=== PATIENT | male | born 1940 | race Two or more races ===

== ENCOUNTER → 2024-01-14 | Outpatient (CLI) | payer OTHER, SELFPAY ==
[2024-01-14 12:31] LABS: Basophils # (Auto) 0.1 Thou/mm3 (0.0-0.2); Basophils % (Auto) 1 % (0-2.5); Eosinophils # (Auto) 0.3 Thou/mm3 (0.0-0.5); Eosinophils % (Auto) 3 % (0-10); Hematocrit 35.3 % (41.0-53.0); Hemoglobin 12.2 g/dL (13.5-16.0); Immature Granulocytes % (Auto) 0 % (0-0); Immature Granulocytes Auto 0.04 Thou/mm3 (0.00-0.00); Lymphocytes # (Auto) 2.4 Thou/mm3 (1.0-4.8); Lymphocytes % (Auto) 24 % (10-50); Mean Corpuscular HGB Conc 34.6 g/dl (31.0-37.0); Mean Corpuscular Volume 93 fL (80-100); Monocytes # (Auto) 0.8 Thou/mm3 (0.0-0.8); Monocytes % (Auto) 8 % (0-12); Neutrophils # (Auto) 6.2 Thou/mm3 (1.8-7.7); Neutrophils % (Auto) 63 % (37-80); Nucleated Red Blood Cell % 0 /100 WBC (0); Platelet Count 229 Thou/mm3 (140-440); RDW Standard Deviation 48.5 fL (35.1-43.9); Red Blood Count 3.81 Miln/mm3 (4.50-5.90); White Blood Count 9.8 Thou/mm3 (3.8-10.6)
[2024-01-14 12:41] LABS: Glucose Estimated Average 111 mg/dL (80-131); Hemoglobin A1C 5.5 % Hgb (4.8-6.0)
[2024-01-14 12:47] LABS: Collection Type, Urine Clean Catch
[2024-01-14 12:52] LABS: Alanine Aminotransferase 33 U/L (10-49); Albumin, Serum 4.4 gm/dL (3.4-4.8); Alkaline Phosphatase 68 U/L (46-116); Anion Gap 9 (7-16); Aspartate Amino Transferase 33 U/L (0-34); BUN/Creatinine Ratio 19 Ratio (12-20); Bilirubin,Total 0.8 mg/dL (0.3-1.2); Blood Urea Nitrogen 19 mg/dL (9-23); Calcium 9.6 mg/dL (8.3-10.6); Calcium (Corrected) 9.6 mg/dL (8.5-10.1); Carbon Dioxide 24.3 mMol/L (20.0-31.0); Cardiac Risk Estimate 1.8 RATIO (4.0-6.7); Chloride 106 mMol/L (98-107); Cholesterol 115 mg/dL (132-200); Globulin 2.2 gm/dL (2.3-3.5); Glucose 148 mg/dL (74-106); HDL Cholesterol 65 mg/dL (40-60); LDL Cholesterol,Calculated 40 mg/dL (0-130); Osmolality,Calculated 282 (275-295); Potassium 3.7 mMol/L (3.4-5.1); Sodium 139 mMol/L (136-145); Total Protein 6.6 gm/dL (5.7-8.2); Triglycerides 52 mg/dL (30-150); eGFR > 60 See Note
[2024-01-14 13:34] LABS: Bilirubin,Urine Negative (Negative); Blood,Urine Negative (Negative); Clarity,Urine Clear (Clear/Hazy); Color,Urine Lt-Yellow (Lt Yel-Yel); Glucose, Urine Negative (Negative); Hyaline Casts,Urine < 1 /hpf (0-1); Ketones,Urine Negative (Negative); Leukocyte Esterase,Urine Negative (Negative); Nitrite,Urine Negative (Negative); Protein,Urine Negative (Neg - Trace); RBC,Urine 11 /hpf (0-3); Specific Gravity,Urine 1.015 (1.001-1.035); Squamous Epithelial Cell,Urine < 1 /hpf (0-5); Urobilinogen,Urine Negative mg/dL (0.0-1.0); WBC,Urine 3 /hpf (0-5)
[2024-01-14 13:46] LABS: Creatinine MALB Rnd Ur 77 mg/dL (30-125); Microalbumin Creat Ratio 17 mg/gCrea (<30); Microalbumin, Random Urine 13 mg/L (0-300)
== END | disposition home or self-care (01) ==
LOC: COPL 11:56
PROVIDERS: PCP Family Medicine; Referring Provider Family Medicine; Visit Provider Family Medicine
DX: E11.65 Type 2 diabetes mellitus with hyperglycemia (principal); I48.91 Unspecified atrial fibrillation
CPT/HCPCS: 36415; 80053; 80061; 81001; 82043; 82570; 83036; 85025

== ENCOUNTER → 2024-03-07 | Outpatient (CLI) | payer OTHER, SELFPAY ==
--- NOTE | 2024-03-07 13:55 | XR_ITS ---
Examination: Bone densitometry Date and time of exam:March 07, 2024 1358 hours INDICATIONS: 84-year-old male with diagnosis age related osteoporosis, calcium and vitamin D 5 years Technique: Lumbar spine and hip total bone mineralization values of an calculated. Peak reference and age match control results have been displayed. Findings: Lumbar spine total bone mineralization is1.432 gm/cm2. This is 3.1 standard deviations above peak reference. Hip total bone mineralization is 1.186 gm/cm2 This is 1.0 standard deviations above peak reference. Impression: There is normal mineralization based on lumbar spine measurements. There is normal mineralization based on hip measurements Lumbar mineralization is increased 3.9% compared with May 14, 2021 Hip mineralization is increased 2.5% compared with May 14, 2021
== END | disposition home or self-care (01) ==
LOC: CDIM 13:39
PROVIDERS: Referring Provider Family Medicine; Visit Provider Family Medicine
DX: M85.88 Other specified disorders of bone density and structure, other site (principal)
CPT/HCPCS: 77080

== ENCOUNTER 2024-05-04 23:35 | Inpatient (IN) | payer OTHER, MEDICARE, SELFPAY ==
[2024-05-04 23:38] VITALS: BP 150/68; PULSE 51; RESP 17; TEMP 36.8; O2SAT 100; BMI 31.1
[2024-05-04 23:40] VITALS: PULSE 64; RESP 18; O2SAT 98; BMI 30.8
[2024-05-05] VITALS (13 sets, daily range): BP systolic 131–227; BP diastolic 47–83; PULSE 51–68; RESP 12–19; TEMP 36.1–36.6; O2SAT 97–100
--- NOTE | 2024-05-05 | EKG_ITS ---
[facility] Test Date: 2024-05-05 Pat Name: REINALDO HURT Department: Room: - Gender: Male Concession Attendant: : 1940 Requested By: Divine Blunt Order Number: [id number] Reading MD: Divine Blunt Measurements Intervals [place] Rate: 45 P: TN: QRS: 70 QRSD: 87 T: 56 QT: 467 QTc: 406 Interpretive Statements ATRIAL FIBRILLATION WITH SLOW VENTRICULAR RESPONSE WITH ABERRANT CONDUCTION OR VENTRICULAR PREMATURE COMPLEXES ABNORMAL RHYTHM ECG Compared to ECG 09/04/2023 15:29:04 Ventricular premature complex(es) now present Aberrant conduction of supraventricular beat(s) now present ST (T wave) deviation no longer present /store/S0/[id number]/ecg/[id number].pdf
--- NOTE | 2024-05-05 00:04 | PC.NURSE ---
BIBA for fall and Syncope episode x 2. pt was taking out the trash when the trash can fell off the sidewalk. trash can injured RT 3rd/4th Digit with laceration. Pt denies LOC during the fall or hitting his head, pt states he is on thinners, for a TIA last year. has plate for a CSF hemorrhage in 198. pt states he doesn't pass out or fall often
--- NOTE | 2024-05-05 00:09 | PC.NURSE ---
documenting nurse placed pt on the monitors and into a gown.
--- NOTE | 2024-05-05 00:44 | PD.EDFALL ---
ED Fall Injury RME/HPI General Chief Complaint: Fall Stated Complaint: FALL Time Seen by Provider: 05/05/24 00:35 Arrival date/time: 05/04/24 23:35 Limitations: no limitations RME / HPI RME / HPI Narrative: Dr. Ponce's Main ED Evaluation: 84yo male with a history of HTN, COPD, BPH BIBA from home presents to the ED for a fall. Patient states he was moving the garbage can when he lost his balance and fell. Patient denies hitting his head, but reports the patient lost consciousness a few minutes later after he took his [place] and was sitting at the table. Patient notes having pain to his fingers where 2 of his nails came off. He denies any headache, neck pain, chest pain, abdominal pain, extremity pain or any other associated symptoms. Patient is on Eliquis. EMS reports that the patient also had a syncopal episode while on the stretcher. Patient reports that he is up today. She Related Data Home Medications ?Medication ?Instructions ?Recorded ?Confirmed doxazosin 4 mg tablet (Cardura) 4 mg PO BID 06/22/20 09/04/23 fluticasone fur. 200 mcg-umeclid 1 inh inhalation QDAY 09/04/23 09/04/23 62.5 mcg-vilant 25 mcg inhalat.powder (Trelegy Ellipta) triamterene 37.5 1 tab PO QAM 09/04/23 09/04/23 mg-hydrochlorothiazide 25 mg tablet metoprolol succinate 50 mg 50 mg PO 4XD 09/05/23 09/05/23 tablet,extended release 24 hr apixaban 5 mg tablet (Eliquis) mg 05/05/24 aspirin 81 mg tablet,delayed mg 05/05/24 release atorvastatin 40 mg tablet mg 05/05/24 folic acid 1 mg tablet 05/05/24 gabapentin 100 mg capsule mg 05/05/24 hydralazine 50 mg tablet mg 05/05/24 hydrocodone 5 mg-acetaminophen 325 tab 05/05/24 mg tablet ibuprofen 600 mg tablet mg 05/05/24 prednisone 10 mg tablet mg 05/05/24 Allergies Allergy/AdvReac Type Severity Reaction Status Date / Time codeine Allergy Intermediate Fainting Verified 06/22/20 10:59 Review of Systems Review of Systems Systems Reviewed: All systems reviewed, normal except as documented Past Medical History Past Medical History NEUROLOGIC: Positive Head Trauma (1986 CSF LEAK); Negative Neurological Disorders or Seizures CARDIAC: Positive Cardiac Disorders and Hypertension; Negative Congestive Heart Failure RESPIRATORY: Positive Chronic Obstructive Pulmonary Disease (COPD) (home o2 at night) GASTROINTESTINAL: Negative Gastrointestinal Disorders GENITOURINARY: Positive Genitourinary Disorders and Benign Prostatic Hyperplasia (turp); Negative Renal Disease MUSCULOSKELETAL: Positive Musculoskeletal Disorders ENT: Positive Cataracts (BILAT) and Head Trauma (1986 CSF LEAK) ENDOCRINE: Negative Endocrine Disorders, Diabetes Mellitus Type 1 or Diabetes Mellitus Type 2 HEMATOLOGIC: Negative Blood Disorders OTHER HISTORY: Negative Autoimmune Disease, Blood Transfusions, Anesthesia Reactions or Cancer Surgical History SURGICAL: Positive Neurologic Surgery (1986,plate) Social History SMOKING STATUS: Former smoker ED Exam Narrative Physical exam: Patient's sitting in the bed, minimal distress talking in full sentences. General Limitations: Present no limitations General appearance: Present alert and in no apparent distress Head Head exam: Present atraumatic and other (No raccoons eyes. No facial swelling.) Eye Eye exam: Present normal appearance, EOMI and other ENT ENT exam: Present normal exam, normal oropharynx, mucous membranes moist and TM's normal bilaterally Neck Neck exam: Present normal inspection, full ROM and trachea midline Chest Chest inspection: Present normal inspection, symmetric chest wall rise and other (No ecchymosis); Absent tenderness Respiratory Respiratory exam: Present normal lung sounds bilaterally Cardiovascular Cardiovascular exam: Present regular rate, normal rhythm and normal heart sounds Abdominal Exam Abdominal exam: Present soft, normal bowel sounds and other Extremities Exam Extremities exam: Present full ROM and other (No forearm, wrist, elbow, ecchymosis, full range of motion. Right index fingernail is gone with the tip of the finger amputated, minimal bleeding, Right distal digit is macerated without any bony exposure.) Back Exam Back exam: Present normal inspection and full ROM Neurological Exam Neurological exam: Present alert, oriented X3, CN II-XII intact and other (Equal sensation and motor to bilateral digits bilaterally-Motor, ulnar, radial nerve.) Psychiatric Psychiatric exam: Present normal affect and normal mood Skin Skin exam: Present warm, dry, intact, normal color and other (Normal cap refill); Absent rash or pallor Course Course Course Narrative: Elective blocks, irrigated 1 L of fluid. Quality Measures none Orders Category Date Time Status EKG (ED ONLY) *Do not use* NOW Care 05/05/24 00:[address] cervical spine wo con Stat Exams 05/05/24 00:[address] head/brain wo con Stat Exams 05/05/24 00:46 Taken EKG (ED Only) Stat Exams 05/05/24 00:00 Draft XR hand comp RT min 3V Stat Exams 05/05/24 00:51 Taken BNP [B-Type Natriuretic Peptide] Stat Lab 05/05/24 00:05 Completed CBC Stat Lab 05/05/24 00:05 Completed CMP [Comprehensive Metabolic Panel] Stat Lab 05/05/24 00:05 Completed PT [Prothrombin Time with INR] Stat Lab 05/05/24 00:05 Completed Troponin I Stat Lab 05/05/24 00:05 Completed Urinalysis Stat Lab 05/05/24 00:55 Ordered cephALEXin [Keflex] Med 05/05/24 05:04 Discontinued 500 mg PO X1 ONE hydrALAZINE INJ [Apresoline Inj] Med 05/05/24 04:33 Discontinued 20 mg IV X1 ONE Vital Signs Vital signs: Vital Signs Temperature 98.2 F 05/04/24 23:38 Pulse Rate 51 L 05/04/24 23:38 Respiratory Rate 17 05/04/24 23:38 Blood Pressure 150/68 H 05/04/24 23:38 Pulse Oximetry (%) 100 05/04/24 23:38 Oxygen Delivery Method Nasal Cannula 05/04/24 23:38 Oxygen Flow Rate 4 05/04/24 23:38 Fall MDM Narrative MDM Narrative:: Differential diagnosis includes syncope, loss of consciousness secondary to overmedication, arrhythmia, mechanical fall, vasovagal syncope, UTI, electrolyte abnormality, occult infection. 84-year-old male with multiple medical problems on Eliquis presenting to the emergency department after mechanical fall while taking out the garbage. Patient is only complaining of pain to the right middle and index nail bed area. 2 additional episodes of syncope witnessed 1 by the and 1 by EMS that was less than 30 seconds. No seizure-like activity is noted. Extremities neurovascularly intact. I attempted to contact a hand surgeon at [facility], but they were unavailable for consultation. Patient's right index finger had a fingerblock placed with 3cc lidocaine 1% in order to allow me to irrigate the wound better. There was nothing suturable on the wound. A small vaseline gauze was placed on the nailbed and surgicel was placed below the nailbed area. I made it aware to the medicine team that I recommend treating with Keflex 500 mg twice daily for 3 to 5 days. When they change dressing we placed the Vaseline gauze that is covering the nailbed only and not removing the surgicel, will absorb over time and follow-up by itself. Please keep the hand elevated to avoid swelling for the next 24 hours. Please keep area dry without putting in water. Patient data External records reviewed:: [facility] previous records (Per chart review, patient was admitted here on 09/04/23 for CVA.) Clinical information provided by:: patient Social determinants that could affect healthcare access:: none Patient has the following chronic illnesses:: HTN, COPD, BPH How is presenting disease/condition affected by chronic disease/condition?: uneffected by Evaluation data The following diagnostics were reviewed and interpreted by me:: lab results, radiology exam(s) and EKG tracing(s) Lab and/or radiology exams considered but not ordered:: none Interpretation Summary: Right hand x-ray shows no obvious fractures or dislocations, but some soft tissue swelling, according to my interpretation. EKG done at 0004, aFib, rate of 47, nonspecific changes in avL, according to my interpretation, ------ [facility] Preliminary Report Draft Patient: REINALDO HURT. Record#: [id number] Birthdate: 1940 Age/Sex: 84 / M Location: [facility] Attending Dr: Ordering Physician: Date of Service: Procedure(s): Accession Number(s): cc: ~ CT scan of the head without intravenous contrast (axial sections with sagittal and coronal reformats) May 05, 2024 0123 hours Clinical history: 84 yo with possible syncope No prior study is available for comparison. Findings: There is no evidence of intracranial hemorrhage, mass effect or midline shift. Right frontal lobe encephalomalacia is noted. There is left frontal craniotomy with underlying dural thickening. There are mild periventricular white matter hypodensities, likely representing chronic small vessel ischemia. There is moderate volume loss. Marked sphenoid sinus opacification with postoperative changes. The mastoid air cells and the other visualized paranasal sinuses are clear. Impression: No evidence of intracranial hemorrhage, mass effect or midline shift. Periventricular chronic small vessel ischemia and volume loss. Other findings as described above. Report Electronically Signed By: Rajiv Sawant 05/05/2024 2:13:47 AM [EST] [facility] Preliminary Report Draft Patient: REINALDO HURT. Record#: [id number] Birthdate: 1940 Age/Sex: 84 / M Location: [facility] Attending Dr: Ordering Physician: Date of Service: Procedure(s): Accession Number(s): cc: ~ CT scan of the cervical spine without intravenous contrast (axial sections with sagittal and coronal reformats) May 05, 2024 0123 hours Clinical History: 84 yo possible Syncope No prior study is available for comparison. Findings: There is no fracture or subluxation. Moderate degenerative changes are noted in the form of multilevel marginal osteophytes, decreased disc spaces. C3-C4 through C6-C7 disc osteophyte complexes are noted with associated uncinate hypertrophy and facet arthropathy causing multilevel mild to moderate bilateral neural foraminal narrowing. The prevertebral soft tissues are unremarkable. Moderate opacification of left mastoid air cells. Impression: No evidence of fracture or subluxation. Moderate degenerative changes. Report Electronically Signed By: Rajiv Sawant 05/05/2024 2:18:21 AM [EST Medications / Prescriptions Medications or Prescriptions considered but not ordered:: none Medication administrations:: Medication Administration History Discontinued Medications Cephalexin HCl (Cephalexin 250 Mg Capsule) 500 mg PO X1 ONE Stop: 05/05/24 05:05 Hydralazine HCl (Hydralazine Inj 20 Mg/Ml Vial) 20 mg IV X1 ONE Stop: 05/05/24 04:34 Last Admin: 05/05/24 05:07 Dose: 20 mg Documented By: MERRILL Comments: Hospitalist in now see above Consultations Consultation(s) initiated? (list below): Yes Consultation #1 (Physician, Specialty, Details): Discussed case with from Hospitalist service regarding admission. Discussed patients ED course, exam findings, labs, and radiology results. The Hospitalist [agrees] to accept the patient for admission. Diagnosis Fall Differential Diagnosis: other (See MDM narrative.) Most likely diagnosis given after review of the tests above:: see below Admission Indicated Admission indicated?: indicated Admission Request Was there a request for admission?: Yes Admission Attestation Admission request attestation: Discussed case with [] from Hospitalist service regarding admission. Discussed patients ED course, exam findings, labs, and radiology results. The Hospitalist [agrees,declines] to accept the patient for admission. Disposition Plan Disposition Plan: Admit Critical Care Time Critical Care Time Critical Care Time: Yes Total Critical Care Time (min.): 40 Attestation: The high probability of sudden, clinically significant deterioration in the patient?s condition required the highest level of my preparedness to intervene urgently. The services I provided to this patient were to treat and/or prevent clinically significant deterioration. Services included the following: chart data review, reviewing nursing notes and/or old charts, documentation time, human resources consultant collaboration regarding findings and treatment options, medication orders and management, direct patient care, vital sign assessments and ordering, interpreting and reviewing diagnostic studies and lab tests. Aggregate critical care time includes only time during which I was engaged in work directly related to the patient?s care, as described above, whether at bedside or elsewhere in the Emergency Department. It did not include time spent performing other reported procedures or the services of residents, students, nurses or physician assistants. Discharge Plan Plan Patient Disposition: Admit Acute Care w/in Hospital Patient condition on transfer: Stable Prescriptions/Referrals Prescriptions/Med Rec: No Action doxazosin [Cardura] 4 mg Tablet 4 mg PO BID triamterene-hydrochlorothiazid 37.5-25 mg Tablet 1 tab PO QAM Trelegy Ellipta 200-62.5-25 mcg Blister With Device 1 inh INHALATION QDAY metoprolol succinate 50 mg tablet extended release 24 hr 50 mg PO 4XD atorvastatin 40 mg tablet Patient Comments: TAKE 1 TABLET BY MOUTH EVERY DAY FOR 90 DAYS prednisone 10 mg tablet Patient Comments: TAKE 1 TABLET BY MOUTH EVERY DAY FOR 30 DAYS hydrocodone-acetaminophen 5-325 mg tablet Patient Comments: TAKE 1 TABLET BY MOUTH TWICE A DAY aspirin 81 mg tablet,delayed release (DR/EC) Patient Comments: TAKE 1 TABLET BY MOUTH EVERY DAY FOR 90 DAYS folic acid 1 mg tablet Patient Comments: TAKE 1 TABLET BY MOUTH EVERY DAY FOR 90 DAYS hydralazine 50 mg tablet Patient Comments: TAKE 1 TABLET BY MOUTH TWICE A DAY WITH FOOD FOR 90 DAYS gabapentin 100 mg capsule Patient Comments: TAKE 3 CAPSULES BY MOUTH 3 TIMES A DAY ibuprofen 600 mg tablet Patient Comments: TAKE 1 TABLET BY MOUTH THREE TIMES A DAY WITH FOOD OR MILK NEEDED FOR 90 DAYS Eliquis 5 mg tablet Patient Comments: TAKE 1 TABLET BY MOUTH TWICE A DAY FOR 90 DAYS Referrals: Benjamin Ramirez MD [Primary Care Provider] - In 1 week Problem List Clinical Impression: Syncope Patient/Caregiver Discharge Instructions Print Language: Faroese Stand Alone Forms: Angelia Award Info., Patient Portal Info Letter
--- NOTE | 2024-05-05 00:46 | XR_ITS ---
Examination: CT brain head without contrast. 2-D sagittal coronal reconstructions Date and time of exam:May 05, 2024 0123 hrs. Indications: Patient fell today with injury to the head, head pain CTDI: vol (mGy):55.9 DLP: (mGycm):1231 Technique: Multiple CT axial sections of the brain have been obtained, 5 mm slice thickness. Contrast has not been administered. 2-D sagittal, coronal reconstructions have been obtained Low dose protocols were performed. One or more of the following dose reduction techniques were used; automated exposure control, adjustment of the mA and/or KV according to patient size, use of iterative reconstruction technique. Findings: No significant ventricular enlargement. Intra-axial or extra-axial hemorrhage density is not seen. No mass effect or midline shift Basal cisterns are not remarkable. Fourth ventricle is midline. Left frontal craniotomy defects and postoperative changes in the sinuses Impression: Negative for acute hemorrhage, mass effect or midline shift
--- NOTE | 2024-05-05 00:50 | XR_ITS ---
Examination: CT cervical spine without contrast 2-D sagittal reconstructions 2-D coronal reconstructions 3-D reconstructions. Exam date and time:May 05, 2024 0123 hrs. Indications: Patient fell today with injury to the neck, neck pain CTDI:vol (mGy) 8.51 DLP: (mGycm) 161 Technique: Multiple 2 mm axial sections of the cervical spine have been obtained. The coronal and sagittal reconstructions have been obtained. 3-D reconstructions have been obtained. Low dose protocols were performed. One or more of the following dose reduction techniques were used; automated exposure control, adjustment of the mA and/or KV according to patient size, use of iterative reconstruction technique. Findings: Axial sections demonstrate intact base of the skull. C1 exhibit satisfactory relationship to the odontoid. No acute cervical vertebral body fracture seen. Alignment posterior spinous processes satisfactory. Impression: No acute cervical fracture.
--- NOTE | 2024-05-05 00:51 | XR_ITS ---
Examination: Hand, right 3 views Technique: Hand AP, oblique, lateral 3 views Date and time of exam: May 05, 2024 at 0105 hrs. Indications: Patient fell today with laceration to the hand Findings: Poor definition of the ungual tuft tip distal phalanx third digit Significant narrowing second and third metacarpophalangeal joints Impression: No opaque foreign body Possible fracture ungual tuft tip distal phalanx third digit Consider follow-up coned views third and fourth digits as clinically warranted
[2024-05-05 01:08] LABS: Basophils # (Auto) 0.1 Thou/mm3 (0.0-0.2); Basophils % (Auto) 1 % (0-2.5); Eosinophils # (Auto) 0.3 Thou/mm3 (0.0-0.5); Eosinophils % (Auto) 3 % (0-10); Hematocrit 34.3 % (41.0-53.0); Hemoglobin 11.7 g/dL (13.5-16.0); Immature Granulocytes % (Auto) 1 % (0-0); Immature Granulocytes Auto 0.06 Thou/mm3 (0.00-0.00); Lymphocytes # (Auto) 2.6 Thou/mm3 (1.0-4.8); Lymphocytes % (Auto) 22 % (10-50); Mean Corpuscular HGB Conc 34.1 g/dl (31.0-37.0); Mean Corpuscular Hemoglobin 31.1 pg (25.0-35.0); Mean Corpuscular Volume 91 fL (80-100); Monocytes # (Auto) 1.3 Thou/mm3 (0.0-0.8); Monocytes % (Auto) 11 % (0-12); Neutrophils # (Auto) 7.7 Thou/mm3 (1.8-7.7); Neutrophils % (Auto) 64 % (37-80); Nucleated Red Blood Cell % 0 /100 WBC (0); Platelet Count 245 Thou/mm3 (140-440); RDW Standard Deviation 45.5 fL (35.1-43.9); Red Blood Count 3.76 Miln/mm3 (4.50-5.90)
[2024-05-05 01:31] LABS: Alanine Aminotransferase 39 U/L (10-49); Albumin, Serum 4.1 gm/dL (3.4-4.8); Albumin/Globulin Ratio 1.4 (1.2-2.2); Alkaline Phosphatase 74 U/L (46-116); Anion Gap 9 (7-16); Aspartate Amino Transferase 34 U/L (0-34); BUN/Creatinine Ratio 28 Ratio (12-20); Bilirubin,Total 0.4 mg/dL (0.3-1.2); Blood Urea Nitrogen 53 mg/dL (9-23); Calcium 9.8 mg/dL (8.3-10.6); Calcium (Corrected) 9.8 mg/dL (8.5-10.1); Carbon Dioxide 30.9 mMol/L (20.0-31.0); Chloride 102 mMol/L (98-107); Creatinine (Component) 1.9 mg/dL (0.6-1.3); Estimated Creatinine Clearance 30.3 mL/min (>60); Globulin 2.9 gm/dL (2.3-3.5); Glucose 115 mg/dL (74-106); INR 1.1 (0.9-1.3); Osmolality,Calculated 298 (275-295); Prothrombin Time 11.9 Seconds (9.0-12.2); Sodium 142 mMol/L (136-145); Troponin I < 0.020 ng/mL (0.0-0.045); eGFR 34 See Note
[2024-05-05 01:58] LABS: B-Type Natriuretic Peptide 289 pg/mL (0-100)
--- NOTE | 2024-05-05 02:14 | PRELIM_ITS ---
CT scan of the head without intravenous contrast (axial sections with sagittal and coronal reformats) May 05, 2024 0123 hours Clinical history: 84 yo with possible syncope No prior study is available for comparison. Findings: There is no evidence of intracranial hemorrhage, mass effect or midline shift. Right frontal lobe encephalomalacia is noted. There is left frontal craniotomy with underlying dural thickening. There are mild periventricular white matter hypodensities, likely representing chronic small vessel ischemia. There is moderate volume loss. Marked sphenoid sinus opacification with postoperative changes. The mastoid air cells and the other visualized paranasal sinuses are clear. Impression: No evidence of intracranial hemorrhage, mass effect or midline shift. Periventricular chronic small vessel ischemia and volume loss. Other findings as described above. Report Electronically Signed By: Rajiv Sawant 05/05/2024 2:13:47 AM [EST]
--- NOTE | 2024-05-05 02:19 | PRELIM_ITS ---
CT scan of the cervical spine without intravenous contrast (axial sections with sagittal and coronal reformats) May 05, 2024 0123 hours Clinical History: 84 yo possible Syncope No prior study is available for comparison. Findings: There is no fracture or subluxation. Moderate degenerative changes are noted in the form of multilevel marginal osteophytes, decreased disc spaces. C3-C4 through C6-C7 disc osteophyte complexes are noted with associated uncinate hypertrophy and facet arthropathy causing multilevel mild to moderate bilateral neural foraminal narrowing. The prevertebral soft tissues are unremarkable. Moderate opacification of left mastoid air cells. Impression: No evidence of fracture or subluxation. Moderate degenerative changes. Report Electronically Signed By: Rajiv Sawant 05/05/2024 2:18:21 AM [EST]
[2024-05-05] MEDS: hydrALAZINE INJ 20 MG/ML VIAL IV (05:07)
--- NOTE | 2024-05-05 05:25 | PC.NURSE ---
[id number] CONTACTED HOSEA SULLIVAN, SENT PT PKT. DR MERCADO SPEAKING WITH TRANSFER NURSE. 1423 PT DECLINED NO HAND SPECIALIST AVAILABLE.
--- NOTE | 2024-05-05 05:29 | XR_ITS ---
Examination: AP chest single view Technique one AP portable upright chest single view Exam date and time: May 05, 2024 0543 hrs. Indication: Syncopal episode today. Findings: Mild prominence cardiac contour No aspiration pneumonia Minor subsegmental atelectasis left base Moderate osteopenia Impression: No aspiration pneumonia
--- NOTE | 2024-05-05 05:29 | ECHO_ITS ---
Transthoracic Echo Report Ht (in): 67 Wt (lb): 196 Exam Location: Echo Lab Status: Inpatient Plasterer Maintenance: TACHO Brooks^^^^ Indications: Procedure Performed: BP: 132 / 72 HR: 88 Technical Quality: Fair MEASUREMENTS (Male / Female) Normal Values 2D ECHO LV Diastolic Diameter PLAX 5.1 cm 4.2 - 5.9 / 3.9 - 5.3 cm LV Systolic Diameter PLAX 3.4 cm IVS Diastolic Thickness 1.1 cm 0.6 - 1.0 / 0.6 - 0.9 cm LVPW Diastolic Thickness 1.0 cm 0.6 - 1.0 / 0.6 - 0.9 cm LV Relative Wall Thickness 0.4 LVOT Diameter 1.7 cm Aortic Root Diameter 3.5 cm LA Systolic Diameter LX 3.7 cm 3.0 - 4.0 / 2.7 - 3.8 cm LV Ejection Fraction MOD 4C 62.5 % LV Cardiac Index MOD 4C 3097.2 cm?/min?m? LV Ejection Fraction 4C AL 63.6 % LV Cardiac Index 4C AL 3266.7 cm?/min?m? LA Volume Index 43.7 cm?/m? 16 - 28 cm?/m? Ascending Aorta Diameter 3.5 cm DOPPLER AV Peak Velocity 158.5 cm/s AV Peak Gradient 10.0 mmHg AV Mean Gradient 7.0 mmHg AV Velocity Time Integral 37.2 cm AI Peak Velocity 217.5 cm/s AI Peak Gradient 18.9 mmHg AI Pressure Half Time 861.0 ms LVOT Peak Velocity 91.7 cm/s LVOT Peak Gradient 3.4 mmHg LVOT Velocity Time Integral 22.6 cm LVOT Cardiac Index 2173.4 cm?/min?m? AV Area Cont Eq vti 1.4 cm? AV Area Cont Eq pk 1.3 cm? MV Peak Velocity 138.0 cm/s MV Peak Gradient 7.6 mmHg MV Mean Velocity 69.0 cm/s MV Mean Gradient 2.0 mmHg MV Area PHT 3.9 cm? MR Peak Velocity 551.0 cm/s MR Peak Gradient 121.4 mmHg Mitral E Point Velocity 160.0 cm/s Mitral A Point Velocity 62.4 cm/s Mitral E to A Ratio 2.6 LV E' Lateral Velocity 13.0 cm/s Mitral E to LV E' Lateral Ratio 12.3 LV E' Septal Velocity 8.4 cm/s Mitral E to LV E' Septal Ratio 19.0 TR Peak Velocity 301.7 cm/s TR Peak Gradient 36.4 mmHg PV Peak Velocity 86.1 cm/s PV Peak Gradient 3.0 mmHg RVOT Peak Velocity 48.0 cm/s FINDINGS Left Ventricle Normal left ventricular size, wall thickness, systolic function with no obvious regional wall motion abnormalities. The left ventricular ejection fraction is normal, estimated at 55-60%. There is grade III diastolic dysfunction of the left ventricle (restrictive filling pattern). Right Ventricle The right ventricle is normal in size and systolic function. Estimated right ventricular systolic pressure is moderately elevated, 64 mmHg. Left Atrium Mildly increased left atrial volume 43.7 mL/m?. Right Atrium The right atrial cavity size is mildly increased. Atrial Septum The interatrial septum appears normal with no evidence of a shunt. Aorta The aorta is normal by two-dimensional, color flow and Doppler interrogation. Mitral Valve Mild thickening of the mitral valve leaflets. Moderate mitral regurgitation. Mild mitral annular calcification. Aortic Valve Aortic valve sclerosis. Trace to mild aortic valve regurgitation. Tricuspid Valve There is moderate to severe tricuspid valve regurgitation. Pulmonic Valve Trivial pulmonic valve regurgitation. Vessels The pulmonary artery appears normal. The inferior vena cava pulmonary and hepatic veins appear normal. Pericardium The pericardium is normal by two-dimensional imaging. There is no significant pericardial effusion. CONCLUSIONS Indication: Syncope LV size and function with EF 55-60%. Diastolic dysfunction present but cannot grade. RV size and function normal. Moderately elevetaed RVSP 64 mm hg. LA and RA mildly dilated. Moderate MR & MAC AV sclerosis without stenosis. Moderate TR Jarrod Mccollum (Electronically Signed) Final Date: 05 May 2024 19:14
--- NOTE | 2024-05-05 05:35 | PD.RESHP ---
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 He presents after a fall that occurred the previous afternoon while moving garbage cans. He landed on his hands, sustaining minor injuries to both hands but was able to get up and walk into the house. He remembers the events clearly and denies any head trauma, loss of consciousness, dizziness, lightheadedness, seizure-like activities, or fainting prior to the fall. He reports significant bleeding from the hands, which lasted approximately 2-3 hours. Later that evening, he was found unconscious while sitting at the dinner table. The episode lasted around 15 minutes, during which he was difficult to arouse, with his eyes closed. He did not fall or hit his head during this episode. A similar event occurred approximately an hour later, at which point EMS was called. During the second episode, he exhibited flaccid paralysis, but there was no memory of the events. His reports confusion following the incident. There were no associated symptoms of nausea, vomiting, jerking, or seizure-like activity. Initial workup, including an EKG, shows atrial fibrillation with a slow ventricular rate (HR 40?50s), suggesting that bradycardia arrhythmia may be a potential cause of his syncopal episodes. The patient is also noted to have acute kidney injury with a creatinine of 1.9 and signs of dry mucosa on exam. Hemoglobin is 11.7, making significant blood loss less likely. A head CT, CT of the neck, glucose, electrolytes, and neurological exam were all benign, and there is no evidence of infection based on labs. Diagnosed with A-fib last year, currently on ELIQUIS and METOPROLOL. His METOPROLOL dose was decreased by his accountant supervisor, Dr. Powell from 50 QID to 50 BID. He sees cardiology regularly, last visit was last week, has an appointment coming up next week. He has history of heart failure, ejection fraction unknown, however he is on daily LASIX 40 mg. Patient admitted for syncope workup. ED COURSE: Afebrile, BP 150/68, HR 51, RR 17, satting 100% on room air. Blood pressure found elevated at 220/110s during the encounter, HR was 50-60%. WBC 12.0 likely reactive. Hgb 11.7, baseline around 12?13. PT/INR within normal limits. Chemistry panel significant for BUN 53, CR 1.9, GLUCOSE 115, BNP 289. Remainder of chemistry panel within normal limits including troponin. Lactic acid is pending. UA negative for UTI. EKG showed A-fib with slow ventricular rate, HR 45. Preliminary head CT, cervical spine CT were negative for acute pathology, pending formal read. CXR showed mild vascular congestion, no pneumonia, pending formal read. PMHx: CVA/TIA, A-fib, CHF, MARIYA, chronic back pain. PSHx: Nonsignificant. MEDS: ELIQUIS 5 mg BID, ASPIRIN 81 mg daily, ATORVASTATIN 40 mg daily, FOLIC ACID 1 mg daily, FUROSEMIDE 40 mg daily, HYDRALAZINE 50 mg BID PRN, TOPROL succinate 50 mg BID, OLMESARTAN-HCTZ 40-25 daily, NORCO 1 tablet daily PRN, IBUPROFEN 600 mg TID PRN, newely started PREDNISONE 10 mg daily for back pain. ALLERGIES: CODEINE (fainting) FHx: First-degree sibling with dementia. SH: Previous smoker, quit 3 years ago. Occasional alcohol use, 1 drink every other day. Denied marijuana or illicit drug use. Exam Vital Signs Temp Pulse Resp BP Pulse Ox O2 Del Method O2 Flow Rate 98.2 F 55 L 15 227/77 H 97 Room Air 4 05/04/24 23:38 05/05/24 05:07 05/05/24 04:26 05/05/24 05:07 05/05/24 04:26 05/05/24 04:26 05/04/24 23:38 Narrative Exam GENERAL Normal elderly male, no apparent distress. On room air, satting well HEENT NCAT.?ENRIQUE. Oral mucosa is moist. Patent Nares NECK Supple, nontender, no thyromegaly, no meningismus, no JVD, no step offs CHEST Bradycardia, irregular rhythm, no m/g/r. CTAB, no w/r/r. Symmetrical chest rise. No intercostal subcostal retraction Atraumatic, nontender, no crepitus, symmetrical expansion. ABDOMEN Soft, mildly distended, nontender. No guarding/rebound tenderness/masses. Bowel sounds presents EXTREMITIES Trace bilateral lower extremity pitting edema. SKIN Warm and dry, no jaundice/rashes. Superficial laceration of the left dorsal arm. Traumatic onychomadesis of digits 3?4 of right arm, clean wound, no active bleeding, no bony deformity, dressing dry and intact, splint in place. NEUROMUSCULAR No lumbar or midline, no CVA, no paraspinal muscle spasm or tenderness. Moves all 4 extremities well, with full ROM and good CSM. HENNESSY x4, CN II-XII grossly intact. No focal neurologic deficits. PSYCHIATRY Normal mood and affect, cooperative, no SI or HI or hallucinations. Results: Labs 05/05/24 00:05 05/05/24 00:05 Labs: Short CBC 05/05/24 Range/Units 00:05 WBC 12.0 H (3.8-10.6) Thou/mm3 Hgb 11.7 L (13.5-16.0) g/dL Hct 34.3 L (41.0-53.0) % Plt Count 245 (140-440) Thou/mm3 BMP 05/05/24 00:05 Sodium 142 Potassium 4.0 Chloride 102 Carbon Dioxide 30.9 BUN 53 H Creatinine 1.9 H Glucose 115 H Calcium 9.8 Cardiac Enzymes 05/05/24 Range/Units 00:05 Troponin I < 0.020 (0.0-0.045) ng/mL Liver Function 05/05/24 Range/Units 00:05 Total Bilirubin 0.4 (0.3-1.2) mg/dL AST 34 (0-34) U/L ALT 39 (10-49) U/L Alkaline Phosphatase 74 (46-116) U/L Albumin 4.1 (3.4-4.8) gm/dL Quality Measures Quality Measures none Advance care planning discussed with:: patient and spouse Medications Home Medications and Allergies Home Medications ?Medication ?Instructions ?Recorded ?Confirmed ?Type doxazosin 4 mg tablet (Cardura) 4 mg PO BID 06/22/20 05/05/24 History fluticasone fur. 200 mcg-umeclid 1 inh inhalation QDAY 09/04/23 05/05/24 History 62.5 mcg-vilant 25 mcg inhalat.powder (Trelegy Ellipta) triamterene 37.5 1 tab PO QAM 09/04/23 05/05/24 History mg-hydrochlorothiazide 25 mg tablet metoprolol succinate 50 mg 50 mg PO BID 09/05/23 05/05/24 History tablet,extended release 24 hr apixaban 5 mg tablet (Eliquis) 5 mg PO BID-QOD 05/05/24 05/05/24 History aspirin 81 mg tablet,delayed 81 mg PO QDAY 05/05/24 05/05/24 History release atorvastatin 40 mg tablet 40 mg PO QDAY 05/05/24 05/05/24 History folic acid 1 mg tablet 1 mg PO QDAY 05/05/24 05/05/24 History furosemide 40 mg tablet 40 mg PO QDAY 05/05/24 05/05/24 History gabapentin 100 mg capsule 100 mg PO TID 05/05/24 05/05/24 History hydralazine 50 mg tablet 50 mg PO BID PRN high blood 05/05/24 05/05/24 History pressure hydrocodone 5 mg-acetaminophen 325 1 tab PO BID PRN pain 05/05/24 05/05/24 History mg tablet ibuprofen 600 mg tablet 600 mg PO TID PRN pain 05/05/24 05/05/24 History olmesartan 40 1 tab PO QDAY 05/05/24 05/05/24 History mg-hydrochlorothiazide 25 mg tablet prednisone 10 mg tablet 10 mg PO QDAY 05/05/24 05/05/24 History Allergies Allergy/AdvReac Type Severity Reaction Status Date / Time codeine Allergy Intermediate Fainting Verified 06/22/20 10:59 Visit Medications Acetaminophen (Acetaminophen 325 Mg Tablet) 650 mg PO Q6H PRN PRN Reason: PAIN SCALE 1-3 (mild Stop: 06/04/24 05:28 Acetaminophen (Acetaminophen 325 Mg Tablet) 650 mg PO Q6H PRN PRN Reason: Fever >100.4 Stop: 06/04/24 05:28 Hydrocodone Bitart/Acetaminophen (Hydrocodone/Apap 10/325 Tab) 1 tab PO Q4HR PRN PRN Reason: PAIN SCALE 7-10 (Severe Stop: 05/10/24 05:28 Aspirin (Aspirin Ec 81 Mg Tabec) 81 mg PO QDAY LEN Stop: 06/04/24 08:59 Ondansetron HCl (Ondansetron Inj 2 Mg/Ml Inj 2 Ml) 4 mg IV Q6H PRN; Protocol PRN Reason: NAUSEA OR VOMITING Stop: 06/04/24 05:28 Oxycodone/Acetaminophen (Oxycodone/Apap 5/325 Tablet) 1 tab PO Q6H PRN PRN Reason: PAIN SCALE 4-6 (Moderate Stop: 05/10/24 05:28 Pantoprazole Sodium (Pantoprazole Inj 40 Mg Vial) 40 mg IVP QDAY LEN Stop: 06/04/24 08:59 Discontinued Medications Cephalexin HCl (Cephalexin 250 Mg Capsule) 500 mg PO X1 ONE Stop: 05/05/24 05:05 Hydralazine HCl (Hydralazine Inj 20 Mg/Ml Vial) 20 mg IV X1 ONE Stop: 05/05/24 04:34 Last Admin: 05/05/24 05:07 Dose: 20 mg Assessment & Plan Plan In summary: 84-year-old male PMHx of previous CVA/TIA, A-fib on ELIQUIS, CHF, HTN, COPD (currently not on oxygen), MARIYA, chronic back pain. Admitted for syncope workup. Appreciate recommendations from cardiology and nephrology teams. Syncope DDx: vasovagal, orthostatics, bradycardia, arrhythmia, less likely neurological. He fell last afternoon while moving garbage cans, landed on his hands, sustained minor injuries to bilateral hands. He was able to get himself up and walk himself into the house. Remember events clearly. Denied head trauma, loss of consciousness, dizziness, lightheadedness, seizure-like activities, or fainting leading up to the incident. Reportedly had lots of bleeding, lasting around 2-3 hours. Later that evening, he was found unconscious while sitting at the dinner table later that day, episode lasted about 15 minutes, he was difficult to arouse, eyes were closed, did not fall or hit his head. Similar episode occurred an hour later with the presence of EMS. Reportedly had flaccid paralysis during the incident. Does not remember events, states he was confused following the incident. No reported nausea, vomiting, jerking, seizure-like activity. EKG shows A-fib with slow ventricular rate, HR 40?50s, pointing towards bradycardia arrhythmia as a possible cause. He has an JOSE G with creatinine 1.9, dry mucosa on exam, suggestive of orthostatics. Less likely had significant blood loss, Hgb 11.7, but may be vasovagal. Remainder workup including head CT, CT neck head, GLUCOSE, electrolytes and neurological exam were benign. No suspected source of infection based on labs. ? Continue NS maintenance at 60 cc/H ? Pending repeat EKG ? Pending orthostatics ? Pending echocardiogram ? Pending cardiology recommendations ? Pending neurology recommendations Hypertensive emergency HTN BP 227/110 while at bedside, HR 40-50s. Has signs of endorgan damage, elevated creatinine. States blood pressure normally runs high around 160s systolic. Home meds include OLMESARTAN-HCZT 40-25 daily, HYDRALAZINE 50 mg BID. Blood pressure improved after HYDRALAZINE 20 mg IV X1 Currently BP 140/47, HR 55. Denies headache, palpitation, or visual changes. ? Continue HYDRALAZINE 10 mg IV push q.6h. PRN ? Holding home OLMESARTAN-HCZT settings of JOSE G, resume when able ? Consider renal ultrasound if HTN persists or does not improve Bradycardia A-fib with SVR Diagnosed in 2023. States his heart rate runs low, 50 ? 60s most of the time. EKG showed A-fib with slow ventricular rate, HR 45. Troponin normal. Denies chest pain, sob, or palpitation, currently or prior. From previous admission, HR in 65-80s. [id number] indicating 11.2%, 15.7% risk of CVA. ? Maintain Mag >2 and K > 4.0 ? Holding home ELIQUIS in setting of acute bleed ? Holding METOPROLOL in settings of bradycardia ? Pending cardiology recommendations JOSE G Admission creatinine 1.9, last normal creatinine 1.0 from . Most likely prerenal in settings of dehydration. ? Continue NS maintenance at 60 cc/H ? Renally dose meds, avoid overdiuresis and NEPHROTOXINS ? Daily CMP CHF, unspecified If accountant supervisor is Dr. Powell which she follows up regularly. Is an appointment coming up with cardiology next week. Has trace bilateral lower extremity edema, no crackles on exam, pending CXR. BNP slightly elevated at 289. ? Home FUROSEMIDE 40 mg daily in settings of JOSE G ? Gentle fluid hydration COPD MARIYA Quit smoking 30 years ago. Has been prescribed home oxygen, currently not using. No signs of COPD exacerbation. Satting well on room air. ? Continue DuoNebs q.6h. ? Continue CPAP HS Hx of CVA He had a stroke greater than 4 years ago affecting his speech, with no residual deficits. He was admitted for TIA in 2023, believed to be related to A-fib. Admission CT head showed no acute pathology, positive for chronic periventricular small vessel ischemia and volume loss. Admission CT cervical spine showed no evidence of fracture or subluxation, probably moderate degenerative changes. No focal neurological deficits on exam. ? Continue home ASPIRIN 81 mg daily ? Pending neurology recommendations Laceration of right hand digits 3-4 Laceration of dorsal left hand He sustained superficial injury to the left dorsal hand and lost both fingernails of digits 3-4 of the right hand secondary to GLF. He is on blood thinners, family reported the blood for around 2 hours. Hgb 11.7. No signs of active bleed. Laceration appears clean and uncomplicated. Received CEFAZOLIN prophylaxis x 1. Right hand x-ray showed no acute fracture, pending formal report. ? Ordered Tdap x 1 ? Holding ELIQUIS ? Wound care ? Daily labs ED advised against removing CITRUCEL dressing which was applied in ED for right hand digits to help fingernail grow. This was communicated to both wound care nursing staff. Peripheral neuropathy Chronic, likely secondary to CVA. Denies history of diabetes, GLUCOSE within normal limits. ? Continue home GABAPENTIN 100 mg TID Chronic low back pain He takes NORCO at home. Recently prescribed PREDNISONE 10 mg for back pain. ? Continue NORCO 5?3 25 q.6h. PRN ? Holding STEROIDS in settings of hypertensive emergency Health maintenance Diet: Cardiorenal GI prophylaxis: PROTONIX DVT prophylaxis: SCDs Antibiotics: None CODE STATUS: Full code Disposition: Admitted for syncope workup. Patient case was discussed with attending, Bony Kern MD. Arvind Ham DO PGYI Attending Provider Attestation/Addendum I attest that I was physically present for the evaluation, physical examination, lab and imaging review of the patient with the residents. I discussed the case with the residents and agree with the findings and plans of care as documented above. Patient is an 84 years old male with past medical history of TIA/CVA without residual deficits, A-fib on Eliquis, hypertension, CHF, COPD, MARIYA, chronic back pain who presented to the ED following a ground-level fall. Patient also had 2 episodes of syncope after the fall. Patient had the fall while he was trying to move a garbage can but denies any dizziness, lightheadedness at that time and denies hitting his head. He did sustain trauma to his hand with laceration on his fingers of right hand. Patient did have significant bleeding following the trauma. Later in the evening, he had an episode of fainting, which lasted around 15 to 20 minutes and EMS was called. He had 1 more episode after EMS arrived. Family at bedside stated that patient was flaccid during the episodes, denied any jerking or seizure-like activity, patient was confused after waking up but was able to easily reorient soon. Patient also had taken his opiate analgesic for back pain. In the ED, patient was found to have heart rate in his 40s to 50s. EKG was obtained which shows A-fib with low ventricular rate. His blood pressure was also high at the time of examination, 227/110. Lab results showed WBC of 12.0, hemoglobin 11.7, BUN/creatinine 53/1.9, BNP 289. CT head was negative for acute hemorrhage, mass effect or midline shift. CT of the neck did not show any fractures. Chest x-ray does not show any pneumonia. We will admit patient for evaluation and management of syncope. Multiple differentials including bradycardia, transient hypotension following acute bleeding and dehydration, possible severe hypertensive episode. We will obtain orthostatic vitals, echocardiography, cardiology and neurology consult. Started on IV hydralazine for blood pressure control. We will hold metoprolol and olmesartan hydrochlorothiazide in setting of JOSE G and bradycardia. Also holding Eliquis due to acute bleeding. We will start him on careful IV hydration for JOSE G given history of CHF. Val Kern MD
[2024-05-05] MEDS: cephALEXin 250 MG CAPSULE 500 MG PO (05:42)
--- NOTE | 2024-05-05 05:50 | PC.NURSE ---
per supervisor [employer], pt will get a bed before shift change
[2024-05-05] MEDS: SODIUM CHLORIDE 0.9% 1000 ML 1,000 ML 60 ML IV (06:26)
[2024-05-05] MEDS: DIPHTH,PERTUSS(ACELL),TET VAC 0.5 ML SYR- ADULT IMi (06:33)
[2024-05-05] MEDS: GABAPENTIN 100 MG CAPSULE PO ×3 (06:33→21:34)
--- NOTE | 2024-05-05 07:19 | PC.NURSE ---
BEDSIDE REPORT RECEIVED PT IS AAOX4 SITTING IN BED WITH AT BEDSIDE.CURRENTLY WAITING FOR BED FOR ADMIT.
--- NOTE | 2024-05-05 07:29 | EKG_ITS ---
[facility] Test Date: 2024-05-05 Pat Name: REINALDO HURT Department: Room: [facility] Gender: Male [employer] Supervisor: : [id number] Requested By: Arvind Ham Order Number: [id number] Reading MD: Arvind Ham Measurements Intervals [place] Rate: 47 P: IL: QRS: 73 QRSD: 84 T: 65 QT: 473 QTc: 421 Interpretive Statements ATRIAL FIBRILLATION WITH SLOW VENTRICULAR RESPONSE MINIMAL ST DEPRESSION [0.025+ mV ST DEPRESSION] ABNORMAL RHYTHM ECG Compared to ECG 05/05/2024 00:04:12 ST (T wave) deviation now present Ventricular premature complex(es) no longer present Aberrant conduction of supraventricular beat(s) no longer present /store/S0/[id number]
[2024-05-05 08:01] LABS: Magnesium 2.8 mg/dL (1.6-2.6)
[2024-05-05 08:02] LABS: Lactate (Lactic Acid) 0.8 mMol/L (0.4-2.0)
[2024-05-05] MEDS: ASPIRIN EC 81 MG TABEC PO (10:09)
[2024-05-05] MEDS: PANTOPRAZOLE INJ 40 MG VIAL IVP (10:09)
--- NOTE | 2024-05-05 10:34 | ESCONSULT_ITS ---
<Statement entered by Jarrod Mccollum MD - 05/06/24 05:42> I have personally seen and examined the patient separately on the above date of service and discussed the plan of care with the resident. I reviewed the resident Dr. Dr. Neptali Graham consultation progress note and agree with the resident findings and plan in the note above and have also edited the documentation to reflect my findings and plan. 84-year-old male with a past medical history of paroxysmal atrial fibrillation on Eliquis, metoprolol XL, history of stroke/TIA, essential hypertension, COPD not on home oxygen, obesity, obstructive sleep apnea, chronic back pain, peripheral neuropathy, hyperlipidemia presented to the emergency department after possible syncopal episode as well as a ground-level fall. Patient apparently initially had a fall the previous afternoon while moving his garbage cans and landed on his hands sustaining injuries to his hands especially his fingers and had significant bleeding as he was on Eliquis. Patient clearly states it was a mechanical fall later that evening patient was sitting on the dinner table and the he passed out. Patient did not fall and was resting on the table. In the emergency department patient initial EKG showed atrial fibrillation with slow ventricular rate at 45-47 bpm with no other acute ST-T changes. QTc was normal. Cardiology now consulted for further evaluation of the bradycardia. Vitals in the emergency department was stable with blood pressure of 150/68 mmHg and heart rate of 45 and 50 bpm, normal sats 100% on room air and respiratory rate of 17. Initial blood pressure was elevated but later on was around 150. Labs showed hemoglobin of 11.7 slightly decreased from before. WBC of 12 and platelets normal. BUN 53 and creatinine 1.9 and his baseline is around 1.1. BNP 289. Lactate 0.8. Rest of the CMP appeared normal. Head CT, cervical spine CT were done which was negative. Chest x-ray with minimal vascular congestion but no evidence of any consolidation or other infection. Assessment and plan: 1. Syncope 2. Bradycardia 3. Atrial fibrillation with slow ventricular rate 4. Acute kidney injury 5. Rule out CHF-mostly HFpEF 6. Uncontrolled hypertension 7. History of CVA/TIA-will need to rule out neurological causes of syncope 8. Laceration of right hand digits as well as dorsal left hand from the fall 9. Hyperlipidemia 10. COPD not on home oxygen 11. Obesity 12. Obstructive sleep apnea Bradycardia-patient with atrial fibrillation with slow ventricular rate on the EKG with heart rate of 45 and 47 bpm telemetry reviewed and also the heart rate is between 45-55 bpm and there is no evidence of any pauses or heart blocks. Patient apparently was taking metoprolol XL will 50 mg tablets for previously which was decreased to 50 mg XL twice daily by his primary alcohol and drug counselor Dr. Powell recently. Given the A-fib with slow ventricular rate. For now hold off on the metoprolol XL and can restart it at 25 mg once daily if the heart rate is more than 55 bpm. Continue to monitor telemetry and no need of any pacemaker at the present point of time. Patient is on anticoagulation with Eliquis at home but can hold it in view of the recent injury to his hands and fingers with significant bleeding as per the patient. Can restart it when hemoglobin stable and no other contraindications. Syncope-unclear etiology at the present moment. Differential diagnosis includes mostly vasovagal and orthostatic hypotension given the acute kidney injury with elevated BUN and creatinine indicating possible dehydration in the setting of Lasix and also the bleeding. Will need to rule out arrhythmias but patient is bradycardic as noted above but unlikely the cause for the syncope as the telemetry has been uneventful here. Neurology was reconsulted by the primary team and will need to rule out neurological causes. Head CT and CT spine negative till now. Need to rule out seizures to Bilateral carotid duplex to be ordered. Check orthostatics prior to giving IV fluids for the patient Continue telemetry monitoring and check echocardiogram to rule out any kind of structural pathology including valvular heart disease. Acute kidney injury-unclear etiology but patient was on Lasix at home along with olmesartan and HCTZ with treatment to hold for now given the JOSE G. Less likely from the bleeding is hemoglobin at 11.7. Check FOBT Gentle IV fluids for now. Continue to monitor renal function. BNP slightly elevated and minimal vascular congestion on the x-ray and patient probably has HFpEF. Will check echocardiogram. Patient also on Lasix 40 mg once daily at home which we recommend to stop for now because of the JOSE G. Uncontrolled hypertension-patient came in with elevated blood pressure and his home regimen included metoprolol XL, olmesartan, HCTZ as well as some furosemide. All medications on hold continue permissive hypertension with systolic blood pressure around 140-150 mmHg until patient is ruled out of the stroke. Recommend to restart with metoprolol XL and once kidney function improves patient can be restarted on losartan. No need of hydrochlorothiazide patient is on Lasix. Injury to hands and the fingers after the fall. Eliquis on hold and further Rx as per primary Management of rest of the medical conditions as per primary team and other consultants. Thank you for the consult and allowing me to participate in the care of the patient. Cardiology will continue to follow. Jarrod Mccollum M.D. Interventional Cardiology HPI Data of Consult Requesting Physician: Val Kern MD Admitting Provider: Val Kern MD Attending Provider: Val Kern MD Primary Care Provider: Benjamin Ramirez MD Consult Narrative Reason for consult: Syncope History of present illness: 84-year-old male with PMHx of previous CVA/TIA without residual deficits, A-fib on ELIQUIS, CHF, HTN, COPD, MARIYA, chronic back pain, presenting with syncopal episode x 2 following ground-level fall. He presents after a fall that occurred the previous afternoon while moving garbage cans. He landed on his hands, sustaining minor injuries to both hands but was able to get up and walk into the house. He remembers the events clearly and denies any head trauma, loss of consciousness, dizziness, lightheadedness, seizure-like activities, or fainting prior to the fall. He reports significant bleeding from the hands, which lasted approximately 2-3 hours. Later that evening, he was found unconscious while sitting at the dinner table. The episode lasted around 15 minutes, during which he was difficult to arouse, with his eyes closed. He did not fall or hit his head during this episode. A similar event occurred approximately an hour later, at which point EMS was called. During the second episode, he exhibited flaccid paralysis, but there was no memory of the events. His reports confusion following the incident. There were no associated symptoms of nausea, vomiting, jerking, or seizure-like activity. Initial workup, including an EKG, shows atrial fibrillation with a slow ventricular rate (HR 40?50s), suggesting that bradycardia arrhythmia may be a potential cause of his syncopal episodes. The patient is also noted to have acute kidney injury with a creatinine of 1.9 and signs of dry mucosa on exam. Hemoglobin is 11.7, making significant blood loss less likely. Diagnosed with A-fib last year, currently on ELIQUIS and METOPROLOL. His METOPROLOL dose was decreased by his alcohol and drug counselor, Dr. Powell from 50 QID to 50 BID. He sees cardiology regularly, last visit was last week, has an appointment coming up next week. He has history of heart failure, ejection fraction unknown, however he is on daily LASIX 40 mg. Patient admitted for syncope workup. ED COURSE: Afebrile, BP 150/68, HR 51, RR 17, satting 100% on room air. Blood pressure found elevated at 220/110s during the encounter, HR was 50-60. WBC 12.0 likely reactive. Hgb 11.7, baseline around 12?13. PT/INR within normal limits. Chemistry panel significant for BUN 53, CR 1.9, GLUCOSE 115, BNP 289. Lactic acid 0.8. LDL 40 and A1c 5.5% as of 01/14/24. Remainder of chemistry panel within normal limits including troponin. UA negative for UTI. EKG showed A-fib with slow ventricular rate, HR 45, occasional PVCs. Head CT, cervical spine CT were negative for acute pathology. CXR showed mild vascular congestion, no pneumonia. Cardiology consulted for workup of syncope. Patient seen and examined at bedside. Patient resting comfortably, no distress. Denies SOB, orthopnea, palpitations, chest pain, dizziness, fatigue, lightheadedness, weakness. Has never had previous syncopal episode. Reports he recently had echo performed outpatient with Dr. Powell. Patient remains bradycardic. Rcommend to resume metoprolol succinate at 25 mg PO daily if HR > 55 /min and then uptitrate to 50 mg daily. cc:: cc: Val Kern MD Review of Systems Review of Systems Systems Reviewed: All systems reviewed, normal except as documented Past Medical History Past Medical History Comments PMH COMMENT: PMHx: CVA/TIA, A-fib, CHF, MARIYA, chronic back pain. PSHx: Head plate s/p head injury w/o residual deficits MEDS: ELIQUIS 5 mg BID, ASPIRIN 81 mg daily, ATORVASTATIN 40 mg daily, FOLIC ACID 1 mg daily, FUROSEMIDE 40 mg daily, HYDRALAZINE 50 mg BID PRN, METOPROLOL succinate 50 mg BID, OLMESARTAN-HCTZ 40-25 daily, NORCO 1 tablet daily PRN, IBUPROFEN 600 mg TID PRN, newely started PREDNISONE 10 mg daily for back pain. ALLERGIES: CODEINE (fainting) FHx: First-degree sibling with dementia. Mother of brain aneurysm. No family cadiac history. SH: Previous smoker, quit 3 years ago. Occasional alcohol use, 1 drink every other day. Denied marijuana or illicit drug use. Exam Vital Signs Temp Pulse Resp BP Pulse Ox O2 Del Method O2 Flow Rate 98 F 51 L 16 139/57 H 99 Room Air 4 05/05/24 06:28 05/05/24 07:25 05/05/24 06:28 05/05/24 07:05/05/24 06:28 05/05/24 06:05/04/24 23:38 Narrative Exam PE: Gen: Well-developed and well-nourished. HEENT: NCAT, PERRLA, EOMI, MMM, anicteric conjunctivae. CVS: normal S1 and S2. No M/R/G. Bradycardic, irregular irregular rhythm. Resp: CTA B/L. No rhonchi, rales, crackles or wheezing. Abd: soft, non-tender, non-distended. MSK: Good ROM in BUE & BLE. No edema or rash. Right middle and ring fingers splinted. Neuro: CN II-XII grossly intact. Strength 5/5 in BUE & BLE. Alert and oriented x3. Psych: appropriate mood and affect. Results Labs 05/05/24 00:05 05/05/24 00:05 Labs: Short CBC 05/05/24 Range/Units 00:05 WBC 12.0 H (3.8-10.6) Thou/mm3 Hgb 11.7 L (13.5-16.0) g/dL Hct 34.3 L (41.0-53.0) % Plt Count 245 (140-440) Thou/mm3 BMP 05/05/24 00:05 Sodium 142 Potassium 4.0 Chloride 102 Carbon Dioxide 30.9 BUN 53 H Creatinine 1.9 H Glucose 115 H Calcium 9.8 Cardiac Enzymes 05/05/24 Range/Units 00:05 Troponin I < 0.020 (0.0-0.045) ng/mL Liver Function 05/05/24 Range/Units 00:05 Total Bilirubin 0.4 (0.3-1.2) mg/dL AST 34 (0-34) U/L ALT 39 (10-49) U/L Alkaline Phosphatase 74 (46-116) U/L Albumin 4.1 (3.4-4.8) gm/dL Quality Measures Quality Measures VTE prophylaxis Advance care planning discussed with:: patient Medications Home Medications and Allergies Home Medications ?Medication ?Instructions ?Recorded ?Confirmed ?Type doxazosin 4 mg tablet (Cardura) 4 mg PO BID 06/22/20 0 05/05/24 History fluticasone fur. 200 mcg-umeclid 1 inh inhalation QDAY 09/04/23 05/05/24 History 62.5 mcg-vilant 25 mcg inhalat.powder (Trelegy Ellipta) triamterene 37.5 1 tab PO QAM 09/04/23 History mg-hydrochlorothiazide 25 mg tablet metoprolol succinate 50 mg 50 mg PO BID 09/05/2305/05 History tablet,extended release 24 hr apixaban 5 mg tablet (Eliquis) 5 mg PO BID-QOD 5 05/05/24 History aspirin 81 mg tablet,delayed 81 mg PO QDAY 05/05/24 History release atorvastatin 40 mg tablet 40 mg PO QDAY 05/05/2405/05 History folic acid 1 mg tablet 1 mg PO QDAY 05/05/24 History furosemide 40 mg tablet 40 mg PO QDAY 05/05/2405/05 History gabapentin 100 mg capsule 100 mg PO TID 05/05/2405/05 History hydralazine 50 mg tablet 50 mg PO BID PRN high blood 05/05/24 05/05/24 History pressure hydrocodone 5 mg-acetaminophen 325 1 tab PO BID PRN pa in 05/05/24 05/05/24 History mg tablet ibuprofen 600 mg tablet 600 mg PO TID PRN pain 05/0505/05/24 History olmesartan 40 1 tab PO QDAY 05/05/2405/05 History mg-hydrochlorothiazide 25 mg tablet prednisone 10 mg tablet 10 mg PO QDAY 05/05/2405/05 History Allergies Allergy/AdvReac Type Severity Reaction Status Date / Time codeine Allergy Intermediate Fainting Verified 06/22/20 10:59 Visit Medications Acetaminophen (Acetaminophen 325 Mg Tablet) 650 mg PO Q6H PRN PRN Reason: PAIN SCALE 1-3 (mild Stop: 06/04/24 05:28 Acetaminophen (Acetaminophen 325 Mg Tablet) 650 mg PO Q6H PRN PRN Reason: Fever >100.4 Stop: 06/04/24 05:28 Hydrocodone Bitart/Acetaminophen (Hydrocodone/Apap 10/325 Tab) 1 tab PO Q4HR PRN PRN Reason: PAIN SCALE 7-10 (Severe Stop: 05/10/24 05:28 Albuterol/Ipratropium (Albuterol/Ipratropium (Duoneb) Rt Kinsey 3 Ml Nebu) 3 ml INH Q6HRRT PRN PRN Reason: wheezing Stop: 06/04/24 06:59 Aspirin (Aspirin Ec 81 Mg Tabec) 81 mg PO QDAY COUNTS INCLUDE 234 BEDS AT THE [facility] Stop: 06/04/24 08:59 Last Admin: 05/05/24 10:09 Dose: 81 mg Atorvastatin Calcium (Atorvastatin Calcium 20 Mg Tablet) 40 mg PO HS COUNTS INCLUDE 234 BEDS AT THE [facility] Stop: 06/04/24 20:59 Gabapentin (Gabapentin 100 Mg Capsule) 100 mg PO TID COUNTS INCLUDE 234 BEDS AT THE [facility] Stop: 06/04/24 05:59 Last Admin: 05/05/24 06:33 Dose: 100 mg Hydralazine HCl (Hydralazine Inj 20 Mg/Ml Vial) 10 mg IV Q6H PRN PRN Reason: SBP>170/100 HOLD if HR >90 Stop: 06/04/24 05:59 Sodium Chloride (Ns) 1,000 mls @ 60 mls/hr IV .[id number] COUNTS INCLUDE 234 BEDS AT THE [facility] Stop: 06/04/24 05:44 Last Admin: 05/05/24 06:26 Dose: 60 mls/hr Ondansetron HCl (Ondansetron Inj 2 Mg/Ml Inj 2 Ml) 4 mg IV Q6H PRN; Protocol PRN Reason: NAUSEA OR VOMITING Stop: 06/04/24 05:28 Oxycodone/Acetaminophen (Oxycodone/Apap 5/325 Tablet) 1 tab PO Q6H PRN PRN Reason: PAIN SCALE 4-6 (Moderate Stop: 05/10/24 05:28 Pantoprazole Sodium (Pantoprazole Inj 40 Mg Vial) 40 mg IVP QDAY LEN Stop: 06/04/24 08:59 Last Admin: 05/05/24 10:09 Dose: 40 mg Discontinued Medications Cephalexin HCl (Cephalexin 250 Mg Capsule) 500 mg PO X1 ONE Stop: 05/05/24 05:05 Last Admin: 05/05/24 05:42 Dose: 500 mg Diphtheria/Tetanus/Acell Pertussis (Diphth,Pertuss(Acell),Tet Vac 0.5 Ml Syr- Adult) 0.5 ml IMi .ONCE ONE Stop: 05/05/24 05:59 Last Admin: 05/05/24 06:33 Dose: 0.5 ml Hydralazine HCl (Hydralazine Inj 20 Mg/Ml Vial) 20 mg IV X1 ONE Stop: 05/05/24 04:34 Last Admin: 05/05/24 05:07 Dose: 20 mg Assessment & Plan Plan 84-year-old male PMHx of previous CVA/TIA, A-fib on ELIQUIS, CHF, HTN, COPD (currently not on oxygen), MARIYA, chronic back pain. Admitted for syncope workup. #Syncope DDx: vasovagal, orthostatics, bradycardia, arrhythmia, less likely neurological. He fell last afternoon while moving garbage cans, landed on his hands, sustained minor injuries to bilateral hands. He was able to get himself up and walk himself into the house. Remember events clearly. Denied head trauma, loss of consciousness, dizziness, lightheadedness, seizure-like activities, or fainting leading up to the incident. Reportedly had lots of bleeding, lasting around 2-3 hours. Later that evening, he was found unconscious while sitting at the dinner table later that day, episode lasted about 15 minutes, he was difficult to arouse, eyes were closed, did not fall or hit his head. Similar episode occurred an hour later with the presence of EMS. Reportedly had flaccid paralysis during the incident. Does not remember events, states he was confused following the incident. No reported nausea, vomiting, jerking, seizure-like activity. EKG shows A-fib with slow ventricular rate, HR 40?50s, pointing towards bradycardia arrhythmia as a possible cause. He has an JOSE G with creatinine 1.9, dry mucosa on exam, suggestive of orthostatics. Less likely had significant blood loss, Hgb 11.7, but may be vasovagal. Remainder workup including head CT, CT neck head, GLUCOSE, electrolytes and neurological exam were benign. No suspected source of infection based on labs. -Continue NS maintenance at 60 cc/H -Pending orthostatics -Follow up echo -Pending neurology recommendations -telemonitoring #Hypertensive emergency #HTN BP 227/110 on admission. HR 40-50s. Has signs of endorgan damage, elevated creatinine. States blood pressure normally runs high around 160s systolic. Home meds include OLMESARTAN-HCZT 40-25 daily, HYDRALAZINE 50 mg BID. Blood pressure improved after HYDRALAZINE 20 mg IV X1 Currently BP 140/47, HR 55. Denies headache, palpitation, or visual changes. -Continue HYDRALAZINE 10 mg IV push q.6h. PRN -Holding home OLMESARTAN-HCZT settings of JOSE G, resume when able -METOPROLOL held due to bradycardia, recommend resuming at 50 mg PO daily #Bradycardia #A-fib with SVR Diagnosed in 2023. States his heart rate runs low, 50 ? 60s most of the time. EKG showed A-fib with slow ventricular rate, HR 45, confirmed with repeat EKG. Troponin normal. Denies chest pain, sob, or palpitation, currently or prior. From previous admission, HR in 65-80s. [id number] indicating 11.2%, 15.7% risk of CVA. -Maintain Mag >2 and K > 4.0 -Holding home ELIQUIS in setting of acute bleed -Holding METOPROLOL XL in settings of bradycardia, resume at 25 mg PO daily if HR > 55 bpm and then uptitrate to 50 mg daily -Telemonitoing -Follow up echo #JOSE G Admission creatinine 1.9, last normal creatinine 1.0 from . Most likely prerenal in settings of dehydration. -Continue NS maintenance at 60 cc/H -Renally dose meds, avoid overdiuresis and NEPHROTOXINS -Daily CMP #CHF, unspecified States alcohol and drug counselor is Dr. Powell which he follows up regularly. Has an appointment coming up with cardiology next week. BNP slightly elevated at 289, no prvious labs to compare. Appears dry on exam. -Hold FUROSEMIDE 40 mg daily in settings of JOSE G -Gentle fluid hydration #COPD #MARIYA Quit smoking 30 years ago. Has been prescribed home oxygen, currently not using. No signs of COPD exacerbation. Satting well on room air. -Continue DuoNebs q.6h. -Continue CPAP HS #Hx of CVA He had a stroke greater than 4 years ago affecting his speech, with no residual deficits. He was admitted for TIA in 2023, believed to be related to A-fib. Admission CT head showed no acute pathology, positive for chronic periventricular small vessel ischemia and volume loss. Admission CT cervical spine showed no evidence of fracture or subluxation, probably moderate degenerative changes. No focal neurological deficits on exam. -Continue home ASPIRIN 81 mg daily -Pending neurology recommendations #Laceration of right hand digits 3-4 #Laceration of dorsal left hand He sustained superficial injury to the left dorsal hand and lost both fingernails of digits 3-4 of the right hand secondary to GLF. He is on blood thinners, family reported bled for around 2 hours. Hgb 11.7. No signs of active bleed. Laceration appears clean and uncomplicated. Received CEFAZOLIN prophylaxis x 1. Right hand x-ray showed possible fracture ungual tuft tip distal phalanx third digit. Right ring and midle fingers bandaged/splinted. -Ordered Tdap x 1 -Holding ELIQUIS -Wound care -Daily labs ED advised against removing CITRUCEL dressing which was applied in ED for right hand digits to help fingernail grow. This was communicated to both wound care nursing staff. #Peripheral neuropathy Chronic, likely secondary to CVA. Denies history of diabetes, GLUCOSE within normal limits. -Continue home GABAPENTIN 100 mg TID #Chronic low back pain He takes NORCO at home. Recently prescribed PREDNISONE 10 mg for back pain. -Continue NORCO 5?3 25 q.6h. PRN -Holding STEROIDS in settings of hypertensive emergency DVT prophylaxis: SCDs GI prophylaxis: Protonix Diet: Cardiac, renal Lines: peripheral IV Code status: Full code Plan of care discussed with attending Dr. Mccollum. Neptali Andrade MD PGY-1
--- NOTE | 2024-05-05 11:22 | PD.RESPRO ---
Documentation for date of: 05/05/24 Subjective Subjective Interval history: 05/05/2024: Patient is an overnight admission for syncope. 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 Per patient's family bedside, patient had a fall and then developed syncope couple hours afterwards. Cardiology neurology on board; appreciate recommendations. Patient remains somewhat bradycardic heart rates between 50-60 but continues to be hypertensive as well; moreover, will add amlodipine 10 mg and hydralazine as needed to control blood pressure. Patient also has atrial fibrillation which is now rate controlled (SVR), will start Eliquis CHADVASc score is high on 05/06. In regards to the JOSE G stopped IV fluids as the patient has history of CHF; moreover, the patient is urinating and eating normally at this time. Will continue to monitor for any acute changes and expect discharge within the next 24 to 48 hours. Exam Vital Signs Temp Pulse Resp BP Pulse Ox O2 Del Method O2 Flow Rate 98 F 51 L 16 139/57 H 99 Room Air 4 05/05/24 06:05/05/24 07:05/05/24 06:28 05/05/24 07:25 05/05/24 06:28 05/05/24 06:05/04/24 23:38 Narrative Exam Physical Exam: GENERAL: Awake, answering questions appropriately, appears stated age HEENT: NC/AT. Moist mucosa. PERRLA/EOMI. CARDIO: Irregulary irregular. No obvious murmurs, no JVD. PULM: No coughing or visible SOB. Lungs CTA B/L. GI: Abdomen soft, NT/ND, +BS. SKIN/MSK/EXT: Right middle and ring fingers splinted. No discoloration/rashes/edema/amputations. +Pedal pulses present B/L. NEURO: Oriented x3, no focal neurological deficits noted, Moves extremities x4. Objective Labs 05/05/24 00:05 05/05/24 00:05 Labs: Laboratory Results - last 24 hr 05/05/24 05/05/24 05/05/24 00:05 05:00 07:55 WBC 12.0 H RBC 3.76 L Hgb 11.7 L Hct 34.3 L MCV 91 MCH 31.1 MCHC 34.1 RDW Std Deviation 45.5 H Plt Count 245 Neut % (Auto) 64 Lymph % (Auto) 22 [place] % (Auto) 11 Eos % (Auto) 3 Baso % (Auto) 1 Neut # (Auto) 7.7 Lymph # (Auto) 2.6 [place] # (Auto) 1.3 H Eos # (Auto) 0.3 Baso # (Auto) 0.1 Immature Gran # (Auto) 0.06 H Absolute Nucleated RBC 0.00 Immature Gran % 1 H Nucleated RBC % 0 PT 11.9 INR 1.1 Sodium 142 Potassium 4.0 Chloride 102 Carbon Dioxide 30.9 Anion Gap 9 BUN 53 H Creatinine 1.9 H Estim Creat Clear Calc 30.3 L eGFR 34 L BUN/Creatinine Ratio 28 H Glucose 115 H Calculated Osmolality 298 H Lactic Acid 0.8 Calcium 9.8 Corrected Calcium 9.8 Magnesium 2.8 H Total Bilirubin 0.4 AST 34 ALT 39 Alkaline Phosphatase 74 Troponin I < 0.020 B-Natriuretic Peptide 289 H Total Protein 7.0 Albumin 4.1 Globulin 2.9 Albumin/Globulin Ratio 1.4 Quality Measures Quality Measures VTE prophylaxis Advance care planning discussed with:: patient Assessment & Plan Assessment Current Active Medications: Generic Name Dose Route Start Last Admin Trade Name Freq PRN Reason Stop Dose Admin Acetaminophen 650 mg 05/05/24 05:29 Acetaminophen 325 Mg Tablet PO 06/04/24 05:28 Q6H PRN PAIN SCALE 1-3 (mild Acetaminophen 650 mg 05/05/24 05:29 Acetaminophen 325 Mg Tablet PO 06/04/24 05:28 Q6H PRN Fever >100.4 Hydrocodone Bitart/Acetaminophen 1 tab 05/05/24 05:29 Hydrocodone/Apap 10/325 Tab PO 05/10/24 05:28 Q4HR PRN PAIN SCALE 7-10 (Severe Albuterol/Ipratropium 3 ml 05/05/24 05:36 Albuterol/Ipratropium (Duoneb) Rt Kinsey 3 Ml Nebu INH 06/04/24 06:59 Q6HRRT PRN wheezing Aspirin 81 mg 05/05/24 09:00 05/05/24 10:09 Aspirin Ec 81 Mg Tabec PO 06/04/24 08:59 81 mg QDAY LEN Administration Atorvastatin Calcium 40 mg 05/05/24 21:00 Atorvastatin Calcium 20 Mg Tablet PO 06/04/24 20:59 HS LEN Gabapentin 100 mg 05/05/24 06:00 05/05/24 06:33 Gabapentin 100 Mg Capsule PO 06/04/24 05:59 100 mg TID LEN Administration Hydralazine HCl 10 mg 05/05/24 05:46 Hydralazine Inj 20 Mg/Ml Vial IV 06/04/24 05:59 Q6H PRN SBP>170/100 HOLD if HR >90 Sodium Chloride 1,000 mls @ 60 mls/hr 05/05/24 05:45 05/05/24 06:26 Ns IV 06/04/24 05:44 60 mls/hr .[id number] LEN Administration Ondansetron HCl 4 mg 05/05/24 05:29 Ondansetron Inj 2 Mg/Ml Inj 2 Ml IV 06/04/24 05:28 Q6H PRN NAUSEA OR VOMITING Protocol Oxycodone/Acetaminophen 1 tab 05/05/24 05:29 Oxycodone/Apap 5/325 Tablet PO 05/10/24 05:28 Q6H PRN PAIN SCALE 4-6 (Moderate Pantoprazole Sodium 40 mg 05/05/24 09:00 05/05/24 10:09 Pantoprazole Inj 40 Mg Vial IVP 06/04/24 08:59 40 mg QDAY LEN Administration Plan 84-year-old male PMHx of previous CVA/TIA, A-fib on ELIQUIS, CHF, HTN, COPD (currently not on oxygen), MARIYA, chronic back pain. Admitted for syncope workup. #Syncope #Bradyarrythmia? DDx: vasovagal, orthostatics, bradycardia, arrhythmia, less likely neurological. He fell last afternoon while moving garbage cans, landed on his hands, sustained minor injuries to bilateral hands He was able to get himself up and walk himself into the house Remember events clearly. Denied head trauma, loss of consciousness, dizziness, lightheadedness, seizure-like activities, or fainting leading up to the incident Reportedly had lots of bleeding, lasting around 2-3 hours. Later that evening, he was found unconscious while sitting at the dinner table later that day, episode lasted about 15 minutes, he was difficult to arouse, eyes were closed, did not fall or hit his head. Similar episode occurred an hour later with the presence of EMS. Reportedly had flaccid paralysis during the incident. Does not remember events, states he was confused following the incident No reported nausea, vomiting, jerking, seizure-like activity. EKG shows A-fib with slow ventricular rate, HR 40?50s, pointing towards bradycardia arrhythmia as a possible cause He has an JOSE G with creatinine 1.9, dry mucosa on exam, suggestive of orthostatics Less likely had significant blood loss, Hgb 11.7, but may be vasovagal 2/2 to stress from trauma Remainder workup including head CT, CT neck head, GLUCOSE, electrolytes and neurological exam were negative No suspected source of infection based on labs Plan: Discontinued NS maintenance at 60 cc/H Pending ortho static vitals ECHO pending read Cardiology and Neurology consulted - appreciate recommendations #Hypertensive emergency #Hypertension BP 227/110 while at bedside, HR 40-50s Has signs of endorgan damage, elevated creatinine States blood pressure normally runs high around 160s systolic Home meds include Olmesartan-HCTZ 40-25 daily, Hydralazine 50 mg BID Denies headache, palpitation, or visual changes Plan: Patient had ~750cc urine output without Brown Will Start Amlodpine 10mg qday for persistently elevated SBP and JOSE G/Bradycardia contraindications to other antihypertensives. PRN Hydralazine 10 mg IV push q.6h. PRN Holding home Olmesartan-HCTZ settings of JOSE G, resume when able #Bradycardia #A-fib with SVR [id number] indicating 11.2%, 15.7% risk of CVA Diagnosed in 2023, states his heart rate runs low, 50 ? 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 Is an appointment coming up with cardiology next week. Has trace bilateral lower extremity edema, no crackles on exam, pending CXR. BNP slightly elevated at 289. Plan: Holding home Lasix 40 mg daily in settings of JOSE G #COPD Quit smoking 30 years ago. Has been prescribed home oxygen, currently not using. No signs of COPD exacerbation. Satting well on room air. Plan: Continue DuoNebs q.6h. Continue CPAP HS #Hx of CVA He had a stroke greater than 4 years ago affecting his speech, with no residual deficits. He was admitted for TIA in 2023, believed to be related to A-fib. Admission CT head showed no acute pathology, positive for chronic periventricular small vessel ischemia and volume loss. Admission CT cervical spine showed no evidence of fracture or subluxation, probably moderate degenerative changes. No focal neurological deficits on exam. Plan: Continue home aspirin 81 mg daily Pending neurology recommendations #Laceration of right hand digits 3-4 #Laceration of dorsal left hand He sustained superficial injury to the left dorsal hand and lost both fingernails of digits 3-4 of the right hand secondary to GLF. He is on blood thinners, family reported the blood for around 2 hours. Hgb 11.7. No signs of active bleed. Laceration appears clean and uncomplicated. Received CEFAZOLIN prophylaxis x 1. Right hand x-ray showed no acute fracture, pending formal report. Plan: Tdap Wound care Daily labs ED advised against removing CITRUCEL dressing which was applied in ED for right hand digits to help fingernail grow #Peripheral neuropathy Chronic, likely secondary to CVA. Denies history of diabetes, GLUCOSE within normal limits. Plan: Continue home gabapentin 100 mg TID #Chronic low back pain He takes NORCO at home. Recently prescribed PREDNISONE 10 mg for back pain. ? Continue NORCO 5?3 25 q.6h. PRN ? Holding STEROIDS in settings of hypertensive emergency Hospital Management: Lines: PIV Diet: Cardiac Bowel: Senna GI prophylaxis: Not needed DVT prophylaxis: SCD Dispo: Pending syncope workup Code: Full Patient seen and assessed with attending Dr. Sands and senior resident Dr. Kia Colindres, PGY-1 Attending Provider Attestation/Addendum I reviewed labs, imaging, EKG, home medications and prior available records. Face to face evaluation was performed by me. I have personally examined the patient and discussed assessment and plan with the IM team. I reviewed the resident note and agree with the plan with exceptions as below. Syncope JOSE G Atrial fibrillation with slow ventricular response Hypertensive urgency Hold beta-blockers Gave IV hydrations Monitor kidney function. Avoid nephrotoxins. Renally dose medications Follow-up echocardiogram Follow-up orthostatic vital signs: Negative Continue amlodipine. Monitor BP
[2024-05-05 11:51] LABS: Collection Type, Urine Voided
[2024-05-05 12:00] LABS: Bilirubin,Urine Negative (Negative); Blood,Urine Negative (Negative); Clarity,Urine Clear (Clear/Hazy); Color,Urine Lt-Yellow (Lt Yel-Yel); Glucose, Urine Negative (Negative); Hyaline Casts,Urine < 1 /hpf (0-1); Ketones,Urine Negative (Negative); Leukocyte Esterase,Urine Negative (Negative); Nitrite,Urine Negative (Negative); PH,Urine 6.5 (5.0-7.0); Protein,Urine Negative (Neg - Trace); RBC,Urine 2 /hpf (0-3); Specific Gravity,Urine 1.017 (1.001-1.035); Squamous Epithelial Cell,Urine < 1 /hpf (0-5); Urobilinogen,Urine Negative mg/dL (0.0-1.0); WBC,Urine 1 /hpf (0-5)
[2024-05-05] MEDS: hydrALAZINE INJ 20 MG/ML VIAL 10 MG IV (13:14)
--- NOTE | 2024-05-05 14:51 | PC.PT ---
PT eval only. Patient is xI with bed mobility, transfers, and ambulation with no DME and is at his PLOF. Patient is clear to ambulate in the hayes and to the bathroom using the IV pole and 1 staff assist for safety 2/2 his history of syncopal episodes. RN made aware.
--- NOTE | 2024-05-05 16:32 | PD.RESCONSUL ---
HPI Data of Consult Patient: new to practice Requesting Physician: Val Kern MD Admitting Provider: Val Kern MD Attending Provider: Val Kern MD Primary Care Provider: Benjamin Ramirez MD Consult Narrative Reason for consult: syncope History of present illness: This is an 84-year-old male with PMHx of previous CVA/TIA without residual deficits, A-fib on ELIQUIS, CHF, HTN, COPD, MARIYA, chronic back pain, presenting with syncopal episode x 2 following ground-level fall. Had 2 witnessed syncopal episodes at home. One witnessed by family and the other withnessed by EMS. Patient has LOC and has no recolection of the events. Per family patient has no hx of seizures, during the event patient did not had tongue bitting, loss of bladder/bowel control or convulsionsInitial workup, including an EKG, shows atrial fibrillation with a slow ventricular rate (HR 40?50s), suggesting that bradycardia arrhythmia may be a potential cause of his syncopal episodes. The patient is also noted to have acute kidney injury with a creatinine of 1.9 and signs of dry mucosa on exam. Hemoglobin is 11.7, making significant blood loss less likely. head CT, CT of the neck, glucose, electrolytes, and neurological exam were all benign, and there is no evidence of infection based on labs. cc:: cc: Val Kern MD Review of Systems Review of Systems Systems Reviewed: All systems reviewed, normal except as documented Exam Vital Signs Temp Pulse Resp BP Pulse Ox O2 Del Method O2 Flow Rate 97.1 F 54 L 19 131/53 H 99 Room Air 4 05/05/24 16:05/05/24 16:05/05/24 16:05/05/24 16:05/05/24 16:05/05/24 16:05/04/24 23:38 Narrative Exam Constitutional: AOx3, able to speak full sentences HEENT: NC/AT, PERRLA, oral mucosa moist, neck supple CVS: RRR, S1-S2 present, no murmurs RESP: CTAB GI: non distended, non tender to palpation, NBS MSK: full ROM, no peripheral edema, peripheral pulses present Skin: warm and dry, no rashes NEURO:? ? MENTAL STATUS:?AAOx3 ? LANG/SPEECH: Fluent, intact naming, repetition & comprehension ? CRANIAL NERVES: ? II: Pupils equal and reactive, no RAPD,?normal visual field and fundus ? III, IV, : EOM intact, no gaze preference or deviation ? V: normal ? VII: no facial asymmetry ? VIII: normal hearing to speech ? MOTOR: 5/5 in both upper and lower extremities ? REFLEXES: 2/4 throughout,?bilateral flexor plantars ? SENSORY: Normal to touch, temperature & pin prick in all extremiteis ? COORD: Normal finger to nose and heel to tamayo, no tremor, no dysmetria Results Labs 05/05/24 00:05 05/05/24 00:05 Labs: Short CBC 05/05/24 Range/Units 00:05 WBC 12.0 H (3.8-10.6) Thou/mm3 Hgb 11.7 L (13.5-16.0) g/dL Hct 34.3 L (41.0-53.0) % Plt Count 245 (140-440) Thou/mm3 BMP 05/05/24 00:05 Sodium 142 Potassium 4.0 Chloride 102 Carbon Dioxide 30.9 BUN 53 H Creatinine 1.9 H Glucose 115 H Calcium 9.8 Cardiac Enzymes 05/05/24 Range/Units 00:05 Troponin I < 0.020 (0.0-0.045) ng/mL Liver Function 05/05/24 Range/Units 00:05 Total Bilirubin 0.4 (0.3-1.2) mg/dL AST 34 (0-34) U/L ALT 39 (10-49) U/L Alkaline Phosphatase 74 (46-116) U/L Albumin 4.1 (3.4-4.8) gm/dL Urine 05/05/24 Range/Units 11:00 Urine Color Lt-Yellow (Lt Yel-Yel) Urine Clarity Clear (Clear/Hazy) Urine pH 6.5 (5.0-7.0) Ur Specific [place] 1.017 (1.001-1.035) Urine Protein Negative (Neg - Trace) Urine Glucose (UA) Negative (Negative) Quality Measures Quality Measures VTE prophylaxis Advance care planning discussed with:: child Medications Home Medications and Allergies Home Medications ?Medication ?Instructions ?Recorded ?Confirmed ?Type doxazosin 4 mg tablet (Cardura) 4 mg PO BID 04/16/21 02/27/25 History fluticasone fur. 200 mcg-umeclid 1 inh inhalation QDAY 09/04/23 05/05/24 History 62.5 mcg-vilant 25 mcg inhalat.powder (Trelegy Ellipta) triamterene 37.5 1 tab PO QAM 09/04/23 05/05/24 History mg-hydrochlorothiazide 25 mg tablet metoprolol succinate 50 mg 50 mg PO BID 09/05/23 05/05/24 History tablet,extended release 24 hr apixaban 5 mg tablet (Eliquis) 5 mg PO BID-QOD 05/05/24 05/05/24 History aspirin 81 mg tablet,delayed 81 mg PO QDAY 05/05/24 05/05/24 History release atorvastatin 40 mg tablet 40 mg PO QDAY 05/05/24 05/05/24 History folic acid 1 mg tablet 1 mg PO QDAY 05/05/24 05/05/24 History furosemide 40 mg tablet 40 mg PO QDAY 05/05/24 05/05/24 History gabapentin 100 mg capsule 100 mg PO TID 05/05/24 05/05/24 History hydralazine 50 mg tablet 50 mg PO BID PRN high blood 05/05/24 05/05/24 History pressure hydrocodone 5 mg-acetaminophen 325 1 tab PO BID PRN pain 05/05/24 05/05/24 History mg tablet ibuprofen 600 mg tablet 600 mg PO TID PRN pain 05/05/24 05/05/24 History olmesartan 40 1 tab PO QDAY 05/05/24 05/05/24 History mg-hydrochlorothiazide 25 mg tablet prednisone 10 mg tablet 10 mg PO QDAY 05/05/24 05/05/24 History Allergies Allergy/AdvReac Type Severity Reaction Status Date / Time codeine Allergy Intermediate Fainting Verified 06/22/20 10:59 Visit Medications Acetaminophen (Acetaminophen 325 Mg Tablet) 650 mg PO Q6H PRN PRN Reason: PAIN SCALE 1-3 (mild Stop: 06/04/24 05:28 Acetaminophen (Acetaminophen 325 Mg Tablet) 650 mg PO Q6H PRN PRN Reason: Fever >100.4 Stop: 06/04/24 05:28 Hydrocodone Bitart/Acetaminophen (Hydrocodone/Apap 10/325 Tab) 1 tab PO Q4HR PRN PRN Reason: PAIN SCALE 7-10 (Severe Stop: 05/10/24 05:28 Albuterol/Ipratropium (Albuterol/Ipratropium (Duoneb) Rt Kinsey 3 Ml Nebu) 3 ml INH Q6HRRT PRN PRN Reason: wheezing Stop: 06/04/24 06:59 Amlodipine Besylate (Amlodipine Besylate 5 Mg Tablet) 10 mg PO QDAY LEN Stop: 06/04/24 15:14 Apixaban (Apixaban 2.5 Mg Tablet) 5 mg PO BID LEN Stop: 06/05/24 08:59 Aspirin (Aspirin Ec 81 Mg Tabec) 81 mg PO QDAY LEN Stop: 06/04/24 08:59 Last Admin: 05/05/24 10:09 Dose: 81 mg Atorvastatin Calcium (Atorvastatin Calcium 20 Mg Tablet) 40 mg PO HS [facility] Stop: 06/04/24 20:59 Gabapentin (Gabapentin 100 Mg Capsule) 100 mg PO TID LEN Stop: 06/04/24 05:59 Last Admin: 05/05/24 13:27 Dose: 100 mg Hydralazine HCl (Hydralazine Inj 20 Mg/Ml Vial) 10 mg IV Q6H PRN PRN Reason: SBP>170/100 HOLD if HR >90 Stop: 06/04/24 05:59 Last Admin: 05/05/24 13:14 Dose: 10 mg Ondansetron HCl (Ondansetron Inj 2 Mg/Ml Inj 2 Ml) 4 mg IV Q6H PRN; Protocol PRN Reason: NAUSEA OR VOMITING Stop: 06/04/24 05:28 Oxycodone/Acetaminophen (Oxycodone/Apap 5/325 Tablet) 1 tab PO Q6H PRN PRN Reason: PAIN SCALE 4-6 (Moderate Stop: 05/10/24 05:28 Pantoprazole Sodium (Pantoprazole Inj 40 Mg Vial) 40 mg IVP QDAY [facility] Stop: 06/04/24 08:59 Last Admin: 05/05/24 10:09 Dose: 40 mg Discontinued Medications Cephalexin HCl (Cephalexin 250 Mg Capsule) 500 mg PO X1 ONE Stop: 05/05/24 05:05 Last Admin: 05/05/24 05:42 Dose: 500 mg Diphtheria/Tetanus/Acell Pertussis (Diphth,Pertuss(Acell),Tet Vac 0.5 Ml Syr- Adult) 0.5 ml IMi .ONCE ONE Stop: 05/05/24 05:59 Last Admin: 05/05/24 06:33 Dose: 0.5 ml Hydralazine HCl (Hydralazine Inj 20 Mg/Ml Vial) 20 mg IV X1 ONE Stop: 05/05/24 04:34 Last Admin: 05/05/24 05:07 Dose: 20 mg Sodium Chloride (Ns) 1,000 mls @ 60 mls/hr IV .[id number] LEN Stop: 06/04/24 05:44 Last Admin: 05/05/24 06:26 Dose: 60 mls/hr Assessment & Plan Plan #Syncope #Bradycardia Assessment: Etiology likely 2/2 to bradycardia. Patient has no focal symptoms. head CT, CT of the neck, glucose, electrolytes, and neurological exam were all benign, and there is no evidence of infection based on labs. Recommendations: -Orthostatic vitals -Echo (TTE) to r/o structural heart disease. -HbA1c, FLP, TSH (to risk stratify or to assess for cardiovascular risk factors) -Neuro-check Q4H -PT eval -EEG - Patient's care was discussed with my attending physician, Dr. Westley Snow MD Internal Medicine PGY-3
[2024-05-05] MEDS: amLODIPine BESYLATE 5 MG TABLET 10 MG PO (16:42)
[2024-05-05] MEDS: ATORVASTATIN CALCIUM 20 MG TABLET 40 MG PO (21:34)
[2024-05-06] VITALS (8 sets, daily range): BP systolic 144–169; BP diastolic 72–80; PULSE 60–69; RESP 12–19; TEMP 36.3–37.1; O2SAT 98–99; BMI 32.1
--- NOTE | 2024-05-06 03:28 | RESP.EEG ---
EEG has been completed and is ready for MD interpretation
[2024-05-06] MEDS: GABAPENTIN 100 MG CAPSULE PO ×2 (05:43→14:31)
[2024-05-06 05:46] LABS: Basophils # (Auto) 0.1 Thou/mm3 (0.0-0.2); Basophils % (Auto) 1 % (0-2.5); Eosinophils # (Auto) 0.4 Thou/mm3 (0.0-0.5); Eosinophils % (Auto) 4 % (0-10); Hematocrit 32.1 % (41.0-53.0); Hemoglobin 10.9 g/dL (13.5-16.0); Immature Granulocytes % (Auto) 0 % (0-0); Immature Granulocytes Auto 0.04 Thou/mm3 (0.00-0.00); Lymphocytes # (Auto) 2.1 Thou/mm3 (1.0-4.8); Lymphocytes % (Auto) 20 % (10-50); Mean Corpuscular Volume 91 fL (80-100); Monocytes # (Auto) 1.2 Thou/mm3 (0.0-0.8); Monocytes % (Auto) 11 % (0-12); Neutrophils % (Auto) 65 % (37-80); Nucleated Red Blood Cell % 0 /100 WBC (0); Platelet Count 213 Thou/mm3 (140-440); RDW Standard Deviation 45.2 fL (35.1-43.9); Red Blood Count 3.52 Miln/mm3 (4.50-5.90); White Blood Count 10.8 Thou/mm3 (3.8-10.6)
[2024-05-06 06:12] LABS: Alanine Aminotransferase 26 U/L (10-49); Albumin, Serum 3.7 gm/dL (3.4-4.8); Albumin/Globulin Ratio 1.5 (1.2-2.2); Alkaline Phosphatase 59 U/L (46-116); Anion Gap 5 (7-16); Aspartate Amino Transferase 20 U/L (0-34); BUN/Creatinine Ratio 33 Ratio (12-20); Bilirubin,Total 0.8 mg/dL (0.3-1.2); Blood Urea Nitrogen 30 mg/dL (9-23); Calcium 9.1 mg/dL (8.3-10.6); Calcium (Corrected) 9.3 mg/dL (8.5-10.1); Carbon Dioxide 27.9 mMol/L (20.0-31.0); Chloride 107 mMol/L (98-107); Creatinine (Component) 0.9 mg/dL (0.6-1.3); Estimated Creatinine Clearance 64.6 mL/min (>60); Free T4 (Free Thyroxine) 1.19 ng/dL (0.89-1.76); Globulin 2.4 gm/dL (2.3-3.5); Glucose 112 mg/dL (74-106); Magnesium 2.2 mg/dL (1.6-2.6); Osmolality,Calculated 286 (275-295); Phosphorous 2.6 mg/dL (2.4-5.1); Sodium 140 mMol/L (136-145); Thyroid Stimulating Hormone 2.42 uIU/mL (0.55-4.78); Total Protein 6.1 gm/dL (5.7-8.2); eGFR > 60 See Note
--- NOTE | 2024-05-06 07:39 | XR_ITS ---
Examination: Carotid arterial duplex scan, ultrasound. Date and time of exam: April 28, 2024 0857 hrs. Indication: Syncopal episodes beginning 3 days ago Technique: Multiple sonographic images have been obtained of the carotid arteries and vertebral arteries, B-mode/grayscale imaging and Doppler spectral analysis and color flow Peak systolic and diastolic velocities have been recorded. Systolic diastolic ratios have been calculated. Findings: Right peak systolic velocities: Distal internal carotid artery peak systolic velocity is 0.9 M/sec Proximal internal carotid artery peak systolic velocity is 0.8 M/sec Carotid bifurcation peak systolic velocity is 1.0 M/sec External carotid artery peak systolic velocity is 1.5 M/sec Vertebral artery flow is antegrade. Left peak systolic velocities: Distal internal carotid artery peak systolic velocity is 0.6 M/sec Proximal internal carotid artery peak systolic velocity is 1 M/sec Carotid bifurcation peak systolic velocity is 1.1 M/sec External carotid artery peak systolic velocity is 1.1 M/sec Vertebral artery flow is antegrade Doppler waveform analysis demonstrates no spectral broadening Impression: Right internal carotid artery demonstrates 0-10% stenosis. Left internal carotid artery demonstrates 0-10% stenosis.
[2024-05-06] MEDS: PANTOPRAZOLE INJ 40 MG VIAL IVP (08:35)
[2024-05-06] MEDS: ASPIRIN EC 81 MG TABEC PO (08:35)
[2024-05-06] MEDS: amLODIPine BESYLATE 5 MG TABLET 10 MG PO (08:35)
[2024-05-06] MEDS: APIXABAN 2.5 MG TABLET 5 MG PO (08:35)
--- NOTE | 2024-05-06 09:20 | ESPR_ITS ---
Documentation for date of: 05/06/24 Subjective Subjective Interval history: No acute overnight events reported. Pt is seen and examined at bedside. Pt denies chest pain, pressure or palpitation. Pt denies deziness or syncopal episodes. Pt states he feels great and would like to go home as today is his 64 year wedding anniversary. 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 Pt denies any concers or complaints. vitals include bp 144/80 and HR 64. Pt states he has never had any known episodes fo bradycardia before. Pts antihypertensive meds were held due to bradycardia. Hgb is 10.9, Hct 32.1, Potassium 4 and Mg 2.2. Keep pottasium above 4 and magnesium above 2 at all times. bandage over the fingers in high hand look clean and dry without evidence of active bleeding. Pt has no other complaints. Exam Vital Signs Temp Pulse Resp BP Pulse Ox O2 Del Method O2 Flow Rate 97.8 F 64 19 144/80 H 98 Room Air 4 05/06/24 08:00 05/06/24 08:35 05/06/24 08:14 05/06/24 08:35 05/06/24 08:14 05/06/24 08:00 05/05/24 20:00 Narrative Exam GENERAL: A&Ox3 . Awake, Not in acute distress NEURO: no focal neurological deficits HEENT: Atraumatic, Normocephalic. mucous membranes moist. Eyes open, symmetrical, & clear HEART: Normal Heart Sounds LUNGS: Clear to auscultation with no wheezing or crackles. ABDOMEN: soft, non-distended, non-tender, bowel sounds heard, no guarding or rebound tenderness SKIN: No Rash or ecchymoses EXTREMITIES: No edema, tenderness, able to move all 4 extremities, pedal pulses palpated, Right middle and ring fingers with bandage and splint without evidence of active bleeding noted. Objective Labs 05/06/24 05:00 05/06/24 05:00 Labs: Laboratory Results - last 24 hr 05/05/24 05/06/24 11:00 05:00 WBC 10.8 H RBC 3.52 L Hgb 10.9 L Hct 32.1 L MCV 91 MCH 31.0 MCHC 34.0 RDW Std Deviation 45.2 H Plt Count 213 D Neut % (Auto) 65 Lymph % (Auto) 20 [place] % (Auto) 11 Eos % (Auto) 4 Baso % (Auto) 1 Neut # (Auto) 7.0 Lymph # (Auto) 2.1 Branch # (Auto) 1.2 H Eos # (Auto) 0.4 Baso # (Auto) 0.1 Immature Gran # (Auto) 0.04 H Absolute Nucleated RBC 0.00 Immature Gran % 0 Nucleated RBC % 0 Sodium 140 Potassium 4.0 Chloride 107 Carbon Dioxide 27.9 Anion Gap 5 L BUN 30 H Creatinine 0.9 D Estim Creat Clear Calc 64.6 eGFR > 60 BUN/Creatinine Ratio 33 H Glucose 112 H Calculated Osmolality 286 Calcium 9.1 Corrected Calcium 9.3 Phosphorus 2.6 Magnesium 2.2 Total Bilirubin 0.8 AST 20 ALT 26 Alkaline Phosphatase 59 D Total Protein 6.1 Albumin 3.7 Globulin 2.4 Albumin/Globulin Ratio 1.5 TSH 2.42 Free T4 1.19 Ur Collection Type Voided Urine Color Lt-Yellow Urine Clarity Clear Urine pH 6.5 Ur Specific [place] 1.017 Urine Protein Negative Urine Glucose (UA) Negative Urine Ketones Negative Urine Blood Negative Urine Nitrite Negative Urine Bilirubin Negative Urine Urobilinogen (Auto) Negative Ur Leukocyte Esterase Negative Urine RBC 2 Urine WBC 1 Ur Squamous Epith Cells < 1 Urine Bacteria None Hyaline Casts < 1 Quality Measures Quality Measures VTE prophylaxis Advance care planning discussed with:: patient Assessment & Plan Assessment Current Active Medications: Generic Name Dose Route Start Last Admin Trade Name Freq PRN Reason Stop Dose Admin Acetaminophen 650 mg 05/05/24 05:29 Acetaminophen 325 Mg Tablet PO 06/04/24 05:28 Q6H PRN PAIN SCALE 1-3 (mild Acetaminophen 650 mg 05/05/24 05:29 Acetaminophen 325 Mg Tablet PO 06/04/24 05:28 Q6H PRN Fever >100.4 Hydrocodone Bitart/Acetaminophen 1 tab 05/05/24 05:29 Hydrocodone/Apap 10/325 Tab PO 05/10/24 05:28 Q4HR PRN PAIN SCALE 7-10 (Severe Albuterol/Ipratropium 3 ml 05/05/24 05:36 Albuterol/Ipratropium (Duoneb) Rt Kinsey 3 Ml Nebu INH 06/04/24 06:59 Q6HRRT PRN wheezing Apixaban 5 mg 05/06/24 09:00 05/06/24 08:35 Apixaban 2.5 Mg Tablet PO 06/05/24 08:59 5 mg BID LEN Administration Aspirin 81 mg 05/05/24 09:00 05/06/24 08:35 Aspirin Ec 81 Mg Tabec PO 06/04/24 08:59 81 mg QDAY LEN Administration Atorvastatin Calcium 40 mg 05/05/24 21:00 05/05/24 21:34 Atorvastatin Calcium 20 Mg Tablet PO 06/04/24 20:59 40 mg HS LEN Administration Gabapentin 100 mg 05/05/24 06:00 05/06/24 05:43 Gabapentin 100 Mg Capsule PO 06/04/24 05:59 100 mg TID LEN Administration Hydralazine HCl 10 mg 05/05/24 05:46 05/05/24 13:14 Hydralazine Inj 20 Mg/Ml Vial IV 06/04/24 05:59 10 mg Q6H PRN Administration SBP>170/100 HOLD if HR >90 Metoprolol Succinate 25 mg 05/06/24 09:15 Metoprolol Succinate Xl 25 Mg Tabcr PO 06/05/24 09:14 QDAY LEN Ondansetron HCl 4 mg 05/05/24 05:29 Ondansetron Inj 2 Mg/Ml Inj 2 Ml IV 06/04/24 05:28 Q6H PRN NAUSEA OR VOMITING Protocol Oxycodone/Acetaminophen 1 tab 05/05/24 05:29 Oxycodone/Apap 5/325 Tablet PO 05/10/24 05:28 Q6H PRN PAIN SCALE 4-6 (Moderate Pantoprazole Sodium 40 mg 05/05/24 09:00 05/06/24 08:35 Pantoprazole Inj 40 Mg Vial IVP 06/04/24 08:59 40 mg QDAY LEN Administration Plan 84-year-old male PMHx of previous CVA/TIA, A-fib on ELIQUIS, CHF, HTN, COPD (currently not on oxygen), MARIYA, chronic back pain. Admitted for syncope workup. #Mechanical ground level fall -Pr denies diziness or syncopal episode, he has a ground level fall moving garbage cans landed on his hands, sustained minor injuries to bilateral hands. He was able to get himself up and walk himself into the house. Remember events clearly. Denied head trauma, loss of consciousness, dizziness, lightheadedness, seizure-like activities, or fainting leading up to the incident. -Reportedly had lots of bleeding, lasting around 2-3 hours. Later he was found unconscious while sitting at the dinner table later that day, episode lasted about 15 minutes, he was difficult to arouse, eyes were closed, did not fall or hit his head. Similar episode occurred an hour later with the presence of EMS. Reportedly had flaccid paralysis during the incident. Does not remember events, states he was confused following the incident. -EKG shows A-fib with slow ventricular rate, HR 40?50's -Hold antihypertensive medications, BB and lasix #Bradycardia #A-fib with SVR Diagnosed in 2023. States his heart rate runs low, 50 ? 60s most of the time. EKG showed A-fib with slow ventricular rate, HR 45, confirmed with repeat EKG. Troponin normal. Denies chest pain, sob, or palpitation, currently or prior. From previous admission, HR in 65-80s. [id number] indicating 11.2%, 15.7% risk of CVA. -Maintain Mag >2 and K > 4.0 -Resumed eliquis and decrease metoprolol to 25mg PO daily if HR > 55 bpm and then uptitrate to 50 mg daily -Follow up with Cardiology outpatient #Diastolic dysfunction, HFpEF EF 55-60% States store coordinator is Dr. Powell which he follows up regularly. Has an appointment coming up with cardiology next week. BNP slightly elevated at 289, no prvious labs to compare. Appears dry on exam. echo done on 05/05/24 LV size and function with EF 55-60%. Diastolic dysfunction present but cannot grade. RV size and function normal. Moderately elevetaed RVSP 64 mm hg. LA and RA mildly dilated. Moderate MR & MAC AV sclerosis without stenosis. Moderate TR -Hold lasix in settings of JOSE G -Gentle fluid hydration #Hypertensive emergency #HTN -On admission BP 227/110 with HR 40-50s. Has signs of endorgan damage, elevated creatinine. -Bp at home is uncontrolled with sytolic in 160s. Home meds include olmesartan- HCTZ and hydralazin -Denies headache, palpitation, or visual changes. -Hold home olmesartan-HCTZ in the setting of JOSE G, resume when able -metoprolol held due to bradycardia, recommend resuming at 25 mg PO daily -hydralazine PRN #JOSE G Admission creatinine 1.9, last normal creatinine 1.0 from . Most likely prerenal in settings of dehydration. -Continue NS maintenance at 60 cc/H -Renally dose meds, avoid overdiuresis and NEPHROTOXINS -Daily CMP #COPD #MARIYA -Pt is a former smoker, quit smoking 30 years ago. Has been prescribed home oxygen, currently not using. No signs of COPD exacerbation. --Currently saturating above 95% on room air - DuoNebs and CPAP HS #Hx of CVA -Pt had a stroke greater than 4 years ago affecting his speech, with no residual deficits. He was admitted for TIA in 2023, believed to be related to A-fib. Admission CT head showed no acute pathology, positive for chronic periventricular small vessel ischemia and volume loss. Admission CT cervical spine showed no evidence of fracture or subluxation, probably moderate degenerative changes. No focal neurological deficits on exam. -Continue home ASPIRIN 81 mg daily -Pending EEG, neurology following #Laceration of right hand 3rd and 4th digits #Laceration of dorsal left hand -Pt had a mechnaical fall and sustained superficial injury to the L. dorsal hand and lost both fingernails of 3rd and 4th digits 3-4 of the right hand -Right hand x-ray showed possible fracture ungual tuft tip distal phalanx third digit. -Pt is on blood thinners, family reported bled for around 2 hours. -Hgb 11.7. -No signs of active bleed. Laceration appears clean and uncomplicated. Right ring and midle fingers bandaged/splinted. -Ordered Tdap x 1 -eliquis resumed by primary team #Peripheral neuropathy -Pt has chronic, denies DM, A1c in Jan 2024 5.5 -Pt is taking gabapentin 100mg TID #Chronic low back pain He takes NORCO at home. Recently prescribed PREDNISONE 10 mg for back pain. -Continue NORCO 5?3 25 q.6h. PRN -Holding STEROIDS in settings of hypertensive emergency Assessment and plan discussed with my attending physician Dr. Chun Buckley (PGY-1)- Internal medicine resident Attending Provider Attestation/Addendum I have personally seen and examined the patient separately on the above date of service and discussed the plan of care with the resident. I reviewed the resident Dr. Edwin Buckley consultation progress note and agree with the resident findings and plan in the note above and have also edited the documentation to reflect my findings and plan. Jarrod Mccollum M.D. Interventional Cardiology
--- NOTE | 2024-05-06 10:08 | CHAP ---
Patient was visited by the Spiritual Care Volunteer who prayed for them. (Volunteer was in the hospital from 09:20-10:00).
--- NOTE | 2024-05-06 10:34 | PD.RESPRO ---
Documentation for date of: 05/06/24 Subjective Subjective Interval history: Patient was seen and examined at bedside this AM. No acute exents overnight. Patient tolerating diet, adequate urine output and mentation is at baseline. Patient endorses improvement of dizziness. Ambulating without symptoms and independently. EEG was completed. Pending read by neurology Carotid artery duplex ultrasound completed on 04/28/2024 findings include: Right internal carotid artery demonstrates 0-10% stenosis. Left internal carotid artery demonstrates 0-10% stenosis. Discontinued amlodipine. Started on metoprolol XL 25 Mg p.o. daily as per cardiology recommendations. Recommend to follow-up with your prepress technician Dr. Sabino Powell on 05/09/2024 after discharge Exam Vital Signs Temp Pulse Resp BP Pulse Ox O2 Del Method O2 Flow Rate 97.8 F 64 19 144/80 H 98 Room Air 4 05/06/24 08:00 05/06/24 08:35 05/06/24 08:14 05/06/24 08:35 05/06/24 08:14 05/06/24 08:00 05/05/24 20:00 Narrative Exam Constitutional Alert, oriented x 3 and comfortable. Elderly male HEENT Vision grossly intact. Patent nares. Trachea midline Respiratory Chest normal on inspection and clear auscultation bilaterally Cardiovascular S1 and S2 audible, RRR. No murmurs carotid bruit. No gross JVD. Abdominal Soft and non tender to palpation in all quadrants. BS + Genitourinary No bladder tenderness, no flank pain. Normal to palpation Musculoskeletal Extremities tone within normal limits. No LE edema. Neurological CN II - XII grossly intact. Extremity motor and sensation grossly intact. Skin Warm, dry and intact. No apparent lesions. Psychiatric Patient has good affect, is cooperative Objective Labs 05/06/24 05:00 05/06/24 05:00 Labs: Laboratory Results - last 24 hr 05/05/24 05/06/24 11:00 05:00 WBC 10.8 H RBC 3.52 L Hgb 10.9 L Hct 32.1 L MCV 91 MCH 31.0 MCHC 34.0 RDW Std Deviation 45.2 H Plt Count 213 D Neut % (Auto) 65 Lymph % (Auto) 20 [place] % (Auto) 11 Eos % (Auto) 4 Baso % (Auto) 1 Neut # (Auto) 7.0 Lymph # (Auto) 2.1 [place] # (Auto) 1.2 H Eos # (Auto) 0.4 Baso # (Auto) 0.1 Immature Gran # (Auto) 0.04 H Absolute Nucleated RBC 0.00 Immature Gran % 0 Nucleated RBC % 0 Sodium 140 Potassium 4.0 Chloride 107 Carbon Dioxide 27.9 Anion Gap 5 L BUN 30 H Creatinine 0.9 D Estim Creat Clear Calc 64.6 eGFR > 60 BUN/Creatinine Ratio 33 H Glucose 112 H Calculated Osmolality 286 Calcium 9.1 Corrected Calcium 9.3 Phosphorus 2.6 Magnesium 2.2 Total Bilirubin 0.8 AST 20 ALT 26 Alkaline Phosphatase 59 D Total Protein 6.1 Albumin 3.7 Globulin 2.4 Albumin/Globulin Ratio 1.5 TSH 2.42 Free T4 1.19 Ur Collection Type Voided Urine Color Lt-Yellow Urine Clarity Clear Urine pH 6.5 Ur Specific [place] 1.017 Urine Protein Negative Urine Glucose (UA) Negative Urine Ketones Negative Urine Blood Negative Urine Nitrite Negative Urine Bilirubin Negative Urine Urobilinogen (Auto) Negative Ur Leukocyte Esterase Negative Urine RBC 2 Urine WBC 1 Ur Squamous Epith Cells < 1 Urine Bacteria None Hyaline Casts < 1 Quality Measures Quality Measures VTE prophylaxis Advance care planning discussed with:: patient Assessment & Plan Assessment Current Active Medications: Generic Name Dose Route Start Last Admin Trade Name Freq PRN Reason Stop Dose Admin Acetaminophen 650 mg 05/05/24 05:29 Acetaminophen 325 Mg Tablet PO 06/04/24 05:28 Q6H PRN PAIN SCALE 1-3 (mild Acetaminophen 650 mg 05/05/24 05:29 Acetaminophen 325 Mg Tablet PO 06/04/24 05:28 Q6H PRN Fever >100.4 Hydrocodone Bitart/Acetaminophen 1 tab 05/05/24 05:29 Hydrocodone/Apap 10/325 Tab PO 05/10/24 05:28 Q4HR PRN PAIN SCALE 7-10 (Severe Albuterol/Ipratropium 3 ml 05/05/24 05:36 Albuterol/Ipratropium (Duoneb) Rt Kinsey 3 Ml Nebu INH 06/04/24 06:59 Q6HRRT PRN wheezing Apixaban 5 mg 05/06/24 09:00 05/06/24 08:35 Apixaban 2.5 Mg Tablet PO 06/05/24 08:59 5 mg BID LEN Administration Aspirin 81 mg 05/05/24 09:00 05/06/24 08:35 Aspirin Ec 81 Mg Tabec PO 06/04/24 08:59 81 mg QDAY LEN Administration Atorvastatin Calcium 40 mg 05/05/24 21:00 05/05/24 21:34 Atorvastatin Calcium 20 Mg Tablet PO 06/04/24 20:59 40 mg HS LEN Administration Gabapentin 100 mg 05/05/24 06:00 05/06/24 05:43 Gabapentin 100 Mg Capsule PO 06/04/24 05:59 100 mg TID LEN Administration Hydralazine HCl 10 mg 05/05/24 05:46 05/05/24 13:14 Hydralazine Inj 20 Mg/Ml Vial IV 06/04/24 05:59 10 mg Q6H PRN Administration SBP>170/100 HOLD if HR >90 Metoprolol Succinate 25 mg 05/06/24 09:15 Metoprolol Succinate Xl 25 Mg Tabcr PO 06/05/24 09:14 QDAY LEN Ondansetron HCl 4 mg 05/05/24 05:29 Ondansetron Inj 2 Mg/Ml Inj 2 Ml IV 06/04/24 05:28 Q6H PRN NAUSEA OR VOMITING Protocol Oxycodone/Acetaminophen 1 tab 05/05/24 05:29 Oxycodone/Apap 5/325 Tablet PO 05/10/24 05:28 Q6H PRN PAIN SCALE 4-6 (Moderate Pantoprazole Sodium 40 mg 05/05/24 09:00 05/06/24 08:35 Pantoprazole Inj 40 Mg Vial IVP 06/04/24 08:59 40 mg QDAY LEN Administration Plan 84-year-old male PMHx of previous CVA/TIA, A-fib on ELIQUIS, CHF, HTN, COPD (currently not on oxygen), MARIYA, chronic back pain. Admitted for syncope workup. #Syncope for investigation #Bradyarrythmia? DDx: vasovagal, orthostatics, bradycardia, arrhythmia, less likely neurological. He fell last afternoon while moving garbage cans, landed on his hands, sustained minor injuries to bilateral hands He was able to get himself up and walk himself into the house Remember events clearly. Denied head trauma, loss of consciousness, dizziness, lightheadedness, seizure-like activities, or fainting leading up to the incident Reportedly had lots of bleeding, lasting around 2-3 hours. Later that evening, he was found unconscious while sitting at the dinner table later that day, episode lasted about 15 minutes, he was difficult to arouse, eyes were closed, did not fall or hit his head. Similar episode occurred an hour later with the presence of EMS. Reportedly had flaccid paralysis during the incident. Does not remember events, states he was confused following the incident No reported nausea, vomiting, jerking, seizure-like activity. EKG shows A-fib with slow ventricular rate, HR 40?50s, pointing towards bradycardia arrhythmia as a possible cause He has an JOS EG with creatinine 1.9, dry mucosa on exam, suggestive of orthostatics Less likely had significant blood loss, Hgb 11.7, but may be vasovagal 2/2 to stress from trauma Remainder workup including head CT, CT neck head, GLUCOSE, electrolytes and neurological exam were negative No suspected source of infection based on labs Transthoracic echocardiogram completed on 05/05/2024 findings include: LV size and function with EF 55-60%. Diastolic dysfunction present but cannot grade. RV size and function normal. Moderately elevetaed RVSP 64 mm hg. LA and RA mildly dilated. Moderate MR & MAC AV sclerosis without stenosis. Moderate TR Orthostatic vitals were negative. Pending EEG read. Most likely vasovagal syncope due to beta-sandy use Plan: ?Pending EEG read. ? Neurologist, Dr. Christy consulted. Appreciate recommendations. ? Cardiology, Dr. Mccollum consulted. Appreciate recommendations. #Hypertensive emergency - resolved #Primary hypertension BP 227/110 while at bedside, HR 40-50s Has signs of endorgan damage, elevated creatinine States blood pressure normally runs high around 160s systolic Home meds include Olmesartan-HCTZ 40-25 daily, Hydralazine 50 mg BID Denies headache, palpitation, or visual changes Plan: ?Discontinue amlodipine 10 Mg p.o. daily ? Started on metoprolol XL 25 Mg p.o. daily as per cardiology recommendation #Bradycardia #A-fib with SVR [id number] indicating 11.2%, 15.7% risk of CVA Diagnosed in 2023, states his heart rate runs low, 50 ? 60s most of the time EKG showed A-fib with slow ventricular rate, HR 45 Troponin norml Denies chest pain, sob, or palpitation, currently or prior From previous admission, HR in 65-80s Plan: -Maintain Mag >2 and K > 4.0 -Resumed Eliquis 5 Mg p.o. twice daily -Resume metoprolol XL 25 Mg p.o. daily as per cardiology recommendations. #Acute Kidney Injury?resolved Admission creatinine 1.9, last normal creatinine 1.0 from Most likely prerenal in settings of dehydration Currently creatinine 0.9 # Chronic diastolic congestive heart failure with preserved ejection fraction [55 to 60%] If prepress technician is Dr. Powell which she follows up regularly. Is an appointment coming up with cardiology next week. Transthoracic echocardiogram completed on 05/05/2024 findings include: LV size and function with EF 55-60%. Diastolic dysfunction present but cannot grade. RV size and function normal. Moderately elevetaed RVSP 64 mm hg. LA and RA mildly dilated. Moderate MR & MAC AV sclerosis without stenosis. Moderate TR Plan: ? Continue to hold Lasix due to syncopal episode. Follow-up with your prepress technician on 05/09/2024 prior to resuming #COPD Quit smoking 30 years ago. Has been prescribed home oxygen, currently not using. No signs of COPD exacerbation. Satting well on room air. Plan: Continue DuoNebs q.6h. Continue CPAP HS #Hx of CVA He had a stroke greater than 4 years ago affecting his speech, with no residual deficits. He was admitted for TIA in 2023, believed to be related to A-fib. Admission CT head showed no acute pathology, positive for chronic periventricular small vessel ischemia and volume loss. Admission CT cervical spine showed no evidence of fracture or subluxation, probably moderate degenerative changes. No focal neurological deficits on exam. Plan: Continue home aspirin 81 mg daily Pending neurology recommendations #Laceration of right hand digits 3-4 #Laceration of dorsal left hand He sustained superficial injury to the left dorsal hand and lost both fingernails of digits 3-4 of the right hand secondary to GLF. He is on blood thinners, family reported the blood for around 2 hours. Hgb 11.7. No signs of active bleed. Laceration appears clean and uncomplicated. Received CEFAZOLIN prophylaxis x 1. Right hand x-ray showed no acute fracture, pending formal report. Plan: Tdap Wound care Daily labs ED advised against removing CITRUCEL dressing which was applied in ED for right hand digits to help fingernail grow ? Follow-up with your PCP for management of Citrucel dress #Peripheral neuropathy Chronic, likely secondary to CVA. Denies history of diabetes, GLUCOSE within normal limits. Plan: Continue home gabapentin 100 mg TID #Chronic low back pain He takes NORCO at home. Recently prescribed PREDNISONE 10 mg for back pain. ? Continue NORCO 5?3 25 q.6h. PRN ? Holding STEROIDS in settings of hypertensive emergency Hospital Management: Lines: PIV Diet: Cardiac Bowel: Senna GI prophylaxis: Not needed DVT prophylaxis: SCD Dispo: Pending EEG read Code: Full Plan of care discussed with Attending Dr. Sands and PGY2 Dr. Kia Ramos MD PGY 1 Attending Provider Attestation/Addendum I reviewed labs, imaging, EKG, home medications and prior available records. Face to face evaluation was performed by me. I have personally examined the patient and discussed assessment and plan with the IM team. I reviewed the resident note and agree with the plan with exceptions as below. See discharge summary
[2024-05-06] MEDS: METOPROLOL SUCCINATE XL 25 MG TABCR PO (10:43)
--- NOTE | 2024-05-06 10:56 | PC.SS ---
Initial assessment: this is 84 year old male admitted for syncope. patient appeared alert/oriented. Patient lives at home with spouse, confirmed home address. Patient assigned his Jayde as his emergency contact. Patient reports being independent with ADL's. Patient has home CPAP machine and cane if needed. Patient PCP is Dr. Benjamin Soto. Patient pharmacy: [facility]. Patient wants to return home upon discharge, family able to transport. No needs identified. D/c plan: Home Next of kin: Jayde, spouse
--- NOTE | 2024-05-06 12:21 | PD.RESDS ---
Planned Discharge Date 05/06/24 DS: Providers Provider Date of admission: 05/05/24 05:29 Primary care physician: Benjamin Ramirez MD Admitting Provider: Val Kern MD Attending Provider on Admission: Tavo Sands MD Consults: 05/05/24 05:31 Consult to Neurology / Tele-Neurology Routine Comment: Consulting Provider: Chris Christy 05/05/24 06:03 Referral Physical Therapy Routine Comment: Physician Instructions: 05/05/24 06:12 Consult to Cardiology Routine Comment: Syncope, hx AFIB, CHF Consulting Provider: Jarrod Mccollum Instructions: Patient of Dr. Powell 05/05/24 15:41 Referral Wound Care Routine Comment: right hand 3rd and 4th digit, top of left hand Attending Provider on DC: Tavo Sands MD Discharging Provider: Talon Ramos MD DS: Diagnosis Problem List Completed Was Problem List Reviewed/Reconciled?: Yes Hospital Course Hospital Course Hospital course: 84-year-old male PMHx of previous CVA/TIA, A-fib on ELIQUIS, CHF, HTN, COPD (currently not on oxygen), MARIYA, chronic back pain. Admitted for syncope workup. Patient had a ground-level fall after tripping on some stairs. Later that night he also had a syncopal episode while sitting at his dinner table. Differential diagnosis included first onset seizures, vasovagal syncope and bradycardia arrhythmia. Patient had an extensive workup, transthoracic echocardiogram showed some diastolic dysfunction with mildly dilated LA and RA. AV sclerosis without stenosis. Orthostatic vitals were negative and EEG was ordered, pending read by neurology. Patient was assessed by cardiology who determined course to be multifactorial due to diuretic use and dose of metoprolol. Metoprolol XL was reduced to 25 Mg p.o. daily from 50 Mg p.o. daily. A hold was put on his diuretics until he follows up with his wire coating machine operator on 05/08/2024. With regards to patient's hypertensive emergency, he received labetalol 10 Mg IV x 1 in the ED. After which his blood pressure improved and remained improved with SBP's between the 140s?160s during hospitalization. Patient had acute kidney injury upon admission with a creatinine of 1.9. He was treated with normal saline IV fluids and his creatinine improved to 0.9 upon discharge. For patient's left hand third and fourth digit laceration. Citrucel dressing was applied in the ED. Patient counseled to follow-up with his PCP for management of the dressings. All patient's labs are now returning to his baseline. Patient is now clinically stable and fit for discharge to home. Discharge diagnoses: 1. Syncope for investigation 2. Hypertensive emergency?resolved 3. Primary hypertension 4. Bradycardia 5. A-fib with SVR 6. Acute kidney injury?resolved 7. Chronic diastolic congestive heart failure with preserved ejection fraction [55 to 60%] 8. COPD 9. History of CVA 10. Laceration of third and fourth digits s/p Citrucel dressing 11. Peripheral neuropathy 12. Chronic low back pain Discharge plan: ? We have decreased your dose of metoprolol to 25 Mg p.o. daily. Take 1 tablet once a day. - We have started you on amlodipine 10 Mg p.o. daily for your blood pressure. - We have put a hold on your medication furosemide and olmesartan/HCTZ until you see your wire coating machine operator. ? We have stopped your medication doxazosin, metoprolol succinate 50 Mg and Trelegy. ? Continue to take the rest of your home medications as before. ? Recommend to follow-up with your wire coating machine operator, Dr. Jr Powell on 05/09/2024. ? Follow-up with your PCP within 1 week for management of your Citrucel dressing. - Follow up with your primary care physician within 1 week of discharge. If you do not have a primary care physician, please follow up with the [facility] Residents clinic ([phone]) ? If you experience any new, worsening or persistent symptoms either call your primary doctor, or dial 911 or present to the emergency department. We are grateful to be able to participate in Mr. Lowery' care. We wish him the best. Plan of care discussed with Attending Dr. Sands and PGY2 Dr. Kia Ramos MD PGY 1 Time Spent with Patient Time attestation: Total time spent providing and/or coordinating discharge services: Time spent: Greater than 30 minutes (38) Exam Vital Signs Temp Pulse Resp BP Pulse Ox O2 Del Method O2 Flow Rate 97.8 F 62 19 169/79 H 98 Room Air 4 05/06/24 08:00 05/06/24 10:43 05/06/24 08:14 05/06/24 10:43 05/06/24 08:14 05/06/24 08:00 05/05/24 20:00 Narrative Exam Constitutional Alert, oriented x 3 and comfortable. Elderly male HEENT Vision grossly intact. Patent nares. Trachea midline Respiratory Chest normal on inspection and clear auscultation bilaterally Cardiovascular S1 and S2 audible, RRR. No murmurs carotid bruit. No gross JVD. Abdominal Soft and non tender to palpation in all quadrants. BS + Genitourinary No bladder tenderness, no flank pain. Normal to palpation Musculoskeletal Extremities tone within normal limits. No LE edema. Neurological CN II - XII grossly intact. Extremity motor and sensation grossly intact. Skin Warm, dry and intact. No apparent lesions. Psychiatric Patient has good affect, is cooperative Discharge Plan Plan Patient Disposition: HOME (Self Care) Patient condition on transfer: Stable Care Plan Goals: ? We have decreased your dose of metoprolol to 25 Mg p.o. daily. Take 1 tablet once a day. - We have started you on amlodipine 10 Mg p.o. daily for your blood pressure. - We have put a hold on your medication furosemide and olmesartan/HCTZ until you see your wire coating machine operator. ? We have stopped your medication doxazosin, metoprolol succinate 50 Mg and Trelegy. ? Continue to take the rest of your home medications as before. ? Recommend to follow-up with your wire coating machine operator, Dr. Jr Powell on 05/09/2024. ? Follow-up with your primary care doctor within 1 week for management of your Citrucel dressing. - Follow up with your primary care physician within 1 week of discharge. If you do not have a primary care physician, please follow up with the [facility] Res[facility] clinic ([phone]) ? If you experience any new, worsening or persistent symptoms either call your primary doctor, or dial 911 or present to the emergency department. Prescriptions/Referrals Prescriptions/Med Rec: New metoprolol succinate 25 mg tablet extended release 24 hr 25 mg PO QDAY Qty: 30 0RF amlodipine 10 mg tablet 10 mg PO QDAY Qty: 30 0RF Continued atorvastatin 40 mg tablet 40 mg PO QDAY Patient Comments: TAKE 1 TABLET BY MOUTH EVERY DAY FOR 90 DAYS hydrocodone-acetaminophen 5-325 mg tablet 1 tab PO BID PRN (Reason: pain) Patient Comments: TAKE 1 TABLET BY MOUTH TWICE A DAY aspirin 81 mg tablet,delayed release (DR/EC) 81 mg PO QDAY Patient Comments: TAKE 1 TABLET BY MOUTH EVERY DAY FOR 90 DAYS folic acid 1 mg tablet 1 mg PO QDAY Patient Comments: TAKE 1 TABLET BY MOUTH EVERY DAY FOR 90 DAYS hydralazine 50 mg tablet 50 mg PO BID PRN (Reason: high blood pressure) Patient Comments: TAKE 1 TABLET BY MOUTH TWICE A DAY WITH FOOD FOR 90 DAYS gabapentin 100 mg capsule 100 mg PO TID Patient Comments: TAKE 3 CAPSULES BY MOUTH 3 TIMES A DAY ibuprofen 600 mg tablet 600 mg PO TID PRN (Reason: pain) Patient Comments: TAKE 1 TABLET BY MOUTH THREE TIMES A DAY WITH FOOD OR MILK NEEDED FOR 90 DAYS Eliquis 5 mg tablet 5 mg PO BID-QOD Patient Comments: TAKE 1 TABLET BY MOUTH TWICE A DAY FOR 90 DAYS Held furosemide 40 mg tablet 40 mg PO QDAY Hold Instructions: Resume on 05/09/24. Hold until you see your wire coating machine operator Patient Comments: TAKE 1 TABLET BY MOUTH EVERY DAY FOR 30 DAYS olmesartan-hydrochlorothiazide 40-25 mg tablet 1 tab PO QDAY Hold Instructions: Resume on 05/09/24. Hold until you see you see your wire coating machine operator Patient Comments: TAKE 1 TABLET BY MOUTH EVERY DAY Discontinued doxazosin [Cardura] 4 mg Tablet 4 mg PO BID Trelegy Ellipta 200-62.5-25 mcg Blister With Device 1 inh INHALATION QDAY metoprolol succinate 50 mg tablet extended release 24 hr 50 mg PO BID No Action triamterene-hydrochlorothiazid 37.5-25 mg Tablet 1 tab PO QAM prednisone 10 mg tablet 10 mg PO QDAY Patient Comments: TAKE 1 TABLET BY MOUTH EVERY DAY FOR 30 DAYS Referrals: Verna Powell MD [Physician] - Benjamin Ramirez MD [Primary Care Provider] - Patient/Caregiver Discharge Instructions Education Materials: AFL/Afib, Causes of Syncope, Dizziness Fainting Poss Causes, Hypertension Dc, Blood Pressure Check Steps Print Language: Turkish Stand Alone Forms: Angelia Award Info., Patient Portal Info Letter Discharge Order Discharge Orders: Discharge (Routine); Ordered 05/06/24 Ordered By: Tavo Sands Quality Discharge Quality Measures VTE prophylaxis Attestestation Attestation I reviewed labs, imaging, EKG, home medications and prior available records. Face to face evaluation was performed by me. I have personally examined the patient and discussed assessment and plan with the IM team. I reviewed the resident note and agree with the plan with exceptions as below. Syncope JOSE G Atrial fibrillation with slow ventricular response Hypertensive urgency Heart rate improved Resumed metoprolol XL at 25 mg daily Ordered carotid ultrasound that showed no significant stenosis Ordered EEG per neurology recommendations. Showed no epileptic waves Follow-up echocardiogram: Showed EF of 55 to 60%. Elevated RVSP, and dilated RA/LA. Follow-up orthostatic vital signs: Negative Continue amlodipine for the hypertension Hold hydrochlorothiazide and olmesartan Follow-up with cardiology on Thursday Time spent is 40 minutes. More than 50% of the time was spent on patient education and coordination of care.
--- NOTE | 2024-05-06 12:50 | PC.NURSE ---
Pt. refuses bed alarm and yellow gown, pt. ambulatory and steady on feet. pt. agrees to call for help if needed.
== END 2024-05-06 15:45 | disposition home or self-care (01) | DRG 312 ==
LOC: SERX 05-05 05:16 → SERHOLD 05-05 05:57 → S2NX 05-05 08:09
PROVIDERS: Admitting Provider Student in an Organized Health Care Education/Training Program; Emergency Provider Emergency Medicine; PCP Family Medicine; Visit Provider Student in an Organized Health Care Education/Training Program
DX: R55 Syncope and collapse (principal); I16.1 Hypertensive emergency; N17.9 Acute kidney failure, unspecified; I50.32 Chronic diastolic (congestive) heart failure; J44.9 Chronic obstructive pulmonary disease, unspecified; I11.0 Hypertensive heart disease with heart failure; N40.0 Benign prostatic hyperplasia without lower urinary tract symptoms; G89.29 Other chronic pain; I48.91 Unspecified atrial fibrillation; R00.1 Bradycardia, unspecified; M54.50 Low back pain, unspecified; G83.9 Paralytic syndrome, unspecified; G47.33 Obstructive sleep apnea (adult) (pediatric); G62.9 Polyneuropathy, unspecified; S61.215A Laceration without foreign body of left ring finger without damage to nail, initial encounter; S61.213A Laceration without foreign body of left middle finger without damage to nail, initial encounter; E66.9 Obesity, unspecified; T50.2X5A Adverse effect of carbonic-anhydrase inhibitors, benzothiadiazides and other diuretics, initial encounter; E78.5 Hyperlipidemia, unspecified; W01.0XXA Fall on same level from slipping, tripping and stumbling without subsequent striking against object, initial encounter; E86.0 Dehydration; Z79.01 Long term (current) use of anticoagulants; Z87.891 Personal history of nicotine dependence; Z86.73 Personal history of transient ischemic attack (TIA), and cerebral infarction without residual deficits; Z79.899 Other long term (current) drug therapy; Z79.82 Long term (current) use of aspirin; Z68.32 Body mass index [BMI] 32.0-32.9, adult
CPT/HCPCS: 36415; 70450; 71045; 72125; 73130; 80053; 81001; 83605; 83735; 83880; 84100; 84439; 84443; 84484; 85025; 85610; 90471; 90715; 93005; 93306; 93880; 95816; 96374; 97161; 99285; J0360; J2470; J7030; A9270

== ENCOUNTER → 2024-09-05 | Outpatient (CLI) | payer OTHER, SELFPAY ==
[2024-09-15 05:44] LABS: Source STOOL
[2024-09-15 05:44] LABS: Source STOOL
== END | disposition home or self-care (01) ==
LOC: COPL 08:39
PROVIDERS: PCP Family Medicine; Referring Provider Family Medicine; Visit Provider Family Medicine
DX: R19.5 Other fecal abnormalities (principal)
CPT/HCPCS: 87177; 87209

== ENCOUNTER 2024-11-16 11:57 | Emergency (ER) | payer OTHER, SELFPAY ==
[2024-11-16 12:00] VITALS: BP 173/78; PULSE 64; PULSE 74; RESP 22; TEMP 36.6; O2SAT 99; BMI 28.8
--- NOTE | 2024-11-16 12:13 | PC.NURSE ---
PT BIBA, GCS 15 FOR GROUND LEVEL FALL, TRIPPED IN SPRINKLER HOLE, NO LOC DID HIT HIS HEAD AND IS ON ELIQUIS. HAS HEMATOMA TO LEFT EYEBROW, HAS SKIN TEAR TO LEFT CHEEK AND LEFT PALM OF HAND. PT ARRIVED W/18G TO LEFT AC. PER FAMILY WHEN THEY WERE HELPING HIM UP HE HAD 2 SYNCOPAL EPISODES WHEN HE WAS GETTING UP. PT HAS CHRONIC BACK PAIN. PROVIDER AT BEDSIDE FOR INITIAL ASSESSMENT.
--- NOTE | 2024-11-16 12:38 | XR_ITS ---
Examination: CT cervical spine without contrast 2-D sagittal reconstructions 2-D coronal reconstructions 3-D reconstructions. Exam date and time:November 16, 2024, 1408 hours INDICATIONS: Ground-level fall today with into the neck, neck pain CTDI:vol (mGy) 15.6 DLP: (mGycm) 368 Technique: Multiple 2 mm axial sections of the cervical spine have been obtained. The coronal and sagittal reconstructions have been obtained. 3-D reconstructions have been obtained. Low dose protocols were performed. One or more of the following dose reduction techniques were used; automated exposure control, adjustment of the mA and/or KV according to patient size, use of iterative reconstruction technique. Findings: Axial sections demonstrate intact base of the skull. C1 exhibit satisfactory relationship to the odontoid. No acute cervical vertebral body fracture seen. Alignment posterior spinous processes satisfactory. Impression: No acute cervical fracture.
--- NOTE | 2024-11-16 12:38 | XR_ITS ---
Examination: CT brain head without contrast. 2-D sagittal coronal reconstructions Date and time of exam:November 16, 2024, 1407 hours INDICATIONS: Ground-level fall today with injury to the head, head pain CTDI: vol (mGy):57.7 DLP: (mGycm):1255 Technique: Multiple CT axial sections of the brain have been obtained, 5 mm slice thickness. Contrast has not been administered. 2-D sagittal, coronal reconstructions have been obtained Low dose protocols were performed. One or more of the following dose reduction techniques were used; automated exposure control, adjustment of the mA and/or KV according to patient size, use of iterative reconstruction technique. Findings: No significant ventricular enlargement. Intra-axial or extra-axial hemorrhage density is not seen. No mass effect or midline shift Basal cisterns are not remarkable. Fourth ventricle is midline. Cranial vault intact. Left frontal craniotomy defect Impression: Negative for acute hemorrhage, mass effect or midline shift
--- NOTE | 2024-11-16 12:38 | XR_ITS ---
Examination: CT maxillofacial, without intravenous contrast. 2-D sagittal reconstructions. 3-D reconstructions. Date and time of exam:November 16, 2024, 1408 hours INDICATIONS: Ground-level fall today with injury to the face, facial pain CTDI: vol (mGy):19.5 DLP: (mGycm):402 Technique: Multiple axial images of maxillofacial region, 3.0 mm slice thickness. 2-D sagittal and coronal reconstructions. 3-D reconstructions. Low dose protocols were performed. One or more of the following dose reduction techniques were used; automated exposure control, adjustment of the mA and/or KV according to patient size, use of iterative reconstruction technique. Findings: Frontal bone frontal sinuses intact The optic globes exhibit symmetry. Orbital rims intact. No nasal bone fractures. No depression zygomatic arches. Pterygoid plates Maxilla and the mandible intact Soft tissue swelling anterior and lateral to the left frontal bone Left frontal craniotomy defect IMPRESSION: No acute facial fracture.
--- NOTE | 2024-11-16 12:38 | EKG_ITS ---
[facility] Test Date: 2024-11-16 Pat Name: REINALDO HURT Department: Room: - Gender: Male Jde Developer: : 1940 Requested By: Kya Augustine Order Number: [id number] Reading MD: Kya Augustine Measurements Intervals [place] Rate: 63 P: MD: QRS: 47 QRSD: 92 T: 23 QT: 420 QTc: 432 Interpretive Statements ATRIAL FIBRILLATION WITH ABERRANT CONDUCTION OR VENTRICULAR PREMATURE COMPLEXES ABNORMAL RHYTHM ECG Compared to ECG 05/05/2024 00:04:57 Ventricular premature complex(es) now present Aberrant conduction of supraventricular beat(s) now present ST (T wave) deviation no longer present /store/S0/[id number]/ecg/[id number].pdf
--- NOTE | 2024-11-16 12:41 | PD.EDFALL ---
ED Fall Injury RME/HPI General Chief Complaint: Fall Stated Complaint: FALL Time Seen by Provider: 11/16/24 12:07 Arrival date/time: 11/16/24 11:57 RME / HPI RME / HPI Narrative: 84-year-old male patient came in for evaluation regarding ground-level fall. Patient tripped and fell, resulting into a patient's left side of the face, left eyebrow swelling, severity mild. Patient also sustained skin tear to the left hand palmar aspect. Patient is taking Eliquis. When the patient was picked up patient developed syncope. Currently patient is denying any chest pain. Denies any other complaints. No medications taken prior to arrival. Related Data Home Medications ?Medication ?Instructions ?Recorded ?Confirmed triamterene 37.5 1 tab PO QAM 09/04/23 05/05/24 mg-hydrochlorothiazide 25 mg tablet apixaban 5 mg tablet (Eliquis) 5 mg PO BID-QOD 05/05/24 05/05/24 aspirin 81 mg tablet,delayed 81 mg PO QDAY 05/05/24 05/05/24 release atorvastatin 40 mg tablet 40 mg PO QDAY 05/05/24 05/05/24 folic acid 1 mg tablet 1 mg PO QDAY 05/05/24 05/05/24 furosemide 40 mg tablet 40 mg PO QDAY 05/05/24 05/05/24 Held on 05/06/24. Instructions: Resume on 05/09/24. Hold until you see your tool machinist gabapentin 100 mg capsule 100 mg PO TID 05/05/24 05/05/24 hydralazine 50 mg tablet 50 mg PO BID PRN high blood 05/05/24 05/05/24 pressure hydrocodone 5 mg-acetaminophen 325 1 tab PO BID PRN pain 05/05/24 05/05/24 mg tablet ibuprofen 600 mg tablet 600 mg PO TID PRN pain 05/05/24 05/05/24 olmesartan 40 1 tab PO QDAY 05/05/24 05/05/24 mg-hydrochlorothiazide 25 mg tablet Held on 05/06/24. Instructions: Resume on 05/09/24. Hold until you see you see your tool machinist prednisone 10 mg tablet 10 mg PO QDAY 05/05/24 05/05/24 Previous Rx's ?Medication ?Instructions ?Recorded amlodipine 10 mg tablet 10 mg PO QDAY #30 tabs 05/06/24 metoprolol succinate 25 mg 25 mg PO QDAY #30 tabs 05/06/24 tablet,extended release 24 hr Allergies Allergy/AdvReac Type Severity Reaction Status Date / Time codeine Allergy Intermediate Fainting Verified 11/16/24 12:06 Review of Systems Review of Systems Narrative Review of Systems: Review of system reviewed and within normal limits except mentioned in HPI ED Exam Narrative Physical exam: VITAL SIGNS: Reviewed. GENERAL APPEARANCE: Alert and interactive, follows commands, no acute distress, HEAD AND FACE: Abrasion and swelling to the left eyebrow, skin tear left cheek ENT: PERRL, pink conjunctivitis, eyelid no trauma, Mucous membrane moist. NECK: Supple, nontender, no nuchal rigidity. CHEST: No tenderness, no crepitus, no paradoxical movement, no retractions. LUNGS: Clear, well ventilated, symmetric, no rales, no wheezing, no ronchi, no stridor, good breath sounds bilaterally. HEART: Regular rate, regular rhythm, no murmur, no gallops. ABDOMEN: Soft, positive bowel sounds, nondistended, no guarding, nontender, no rebound, no masses, RECTAL: Deferred. GENITAL: Deferred. NEUROLOGICAL: Gross motor function intact sensory function intact, Appropriate for age. MUSCULOSKELETAL: low back nontender, full range of motion. EXTREMITIES: Nontender, full range of motion. Skin tear left hand palmar aspect SKIN: Color pink, dry, no rash, no lacerations, no abrasions, no contusions. LYMPHATICS: Deferred. Course Quality Measures none Orders Category Date Time Status EKG (ED ONLY) *Do not use* NOW Care 11/16/24 12:[address] cervical spine wo con Stat Exams 11/16/24 12:[address] facial bones wo con Stat Exams 11/16/24 12:[address] head/brain wo con Stat Exams 11/16/24 12:38 Completed EKG (ED Only) Stat Exams 11/16/24 12:38 Draft CBC Stat Lab 11/16/24 13:08 Completed Comprehensive Metabolic Panel Stat Lab 11/16/24 13:08 Completed Partial Thromboplastin Time Stat Lab 11/16/24 13:08 Completed Troponin I Stat Lab 11/16/24 13:08 Completed Vital Signs Vital signs: Vital Signs Temperature 98 F 11/16/24 12:00 Pulse Rate 64 11/16/24 12:00 Respiratory Rate 22 H 11/16/24 12:00 Blood Pressure 173/78 H 11/16/24 12:00 Pulse Oximetry (%) 99 11/16/24 12:00 Oxygen Delivery Method Room Air 11/16/24 12:00 Fall MDM Narrative MDM Narrative:: 84-year-old male patient came in for evaluation regarding ground-level fall. Patient tripped and fell, resulting into a patient's left side of the face, left eyebrow swelling, severity mild. Patient also sustained skin tear to the left hand palmar aspect. Patient is taking Eliquis. When the patient was picked up patient developed syncope. Currently patient is denying any chest pain. Denies any other complaints. No medications taken prior to arrival. EKG showed chronic A-fib, rate controlled, ventricular rate of 63 bpm, no ST segment elevation depression noted. CT scan of the head came back unremarkable. CT scan of the face came back unremarkable CT scan of the neck came back unremarkable. Laboratory workup also came back normal. Patient skin tear was cleansed with NS, no foreign body noted, and well-approximated with Steri-Strip. Sterile dressing applied results discussed with the patient. Patient stable discharge home. Patient data External records reviewed:: None Clinical information provided by:: patient and family Social determinants that could affect healthcare access:: none Patient has the following chronic illnesses:: Hypertension chronic A-fib on Eliquis How is presenting disease/condition affected by chronic disease/condition?: exacerbated by Evaluation data The following diagnostics were reviewed and interpreted by me:: lab results and radiology exam(s) Lab and/or radiology exams considered but not ordered:: None Interpretation Summary: See results and MDM Medications / Prescriptions Medications or Prescriptions considered but not ordered:: None none Medication administrations:: None Consultations Consultation(s) initiated? (list below): No Diagnosis Fall Differential Diagnosis: other (Fall, near-syncope, skin tear eyebrow contusion hematoma intracranial bleed) Most likely diagnosis given after review of the tests above:: Fall, near-syncope, skin tear left side of the face, skin tear left hand Admission Indicated Admission indicated?: not indicated Admission Request Was there a request for admission?: No Disposition Plan Disposition Plan: Discharge Discharge Attestation Discharge Attestation: The patient and all family members were given an opportunity to ask questions and understood the discharge instructions. Discharge instructions specifically effects, indications for sooner follow up or return to the emergency department, and the expected course of current diagnosis. Patient condition: Stable Discharge Plan Plan Patient Disposition: HOME (Self Care) Discharge Disposition comment: Stable Prescriptions/Referrals Prescriptions/Med Rec: No Action triamterene-hydrochlorothiazid 37.5-25 mg Tablet 1 tab PO QAM atorvastatin 40 mg tablet 40 mg PO QDAY Patient Comments: TAKE 1 TABLET BY MOUTH EVERY DAY FOR 90 DAYS prednisone 10 mg tablet 10 mg PO QDAY Patient Comments: TAKE 1 TABLET BY MOUTH EVERY DAY FOR 30 DAYS hydrocodone-acetaminophen 5-325 mg tablet 1 tab PO BID PRN (Reason: pain) Patient Comments: TAKE 1 TABLET BY MOUTH TWICE A DAY aspirin 81 mg tablet,delayed release (DR/EC) 81 mg PO QDAY Patient Comments: TAKE 1 TABLET BY MOUTH EVERY DAY FOR 90 DAYS folic acid 1 mg tablet 1 mg PO QDAY Patient Comments: TAKE 1 TABLET BY MOUTH EVERY DAY FOR 90 DAYS hydralazine 50 mg tablet 50 mg PO BID PRN (Reason: high blood pressure) Patient Comments: TAKE 1 TABLET BY MOUTH TWICE A DAY WITH FOOD FOR 90 DAYS gabapentin 100 mg capsule 100 mg PO TID Patient Comments: TAKE 3 CAPSULES BY MOUTH 3 TIMES A DAY ibuprofen 600 mg tablet 600 mg PO TID PRN (Reason: pain) Patient Comments: TAKE 1 TABLET BY MOUTH THREE TIMES A DAY WITH FOOD OR MILK NEEDED FOR 90 DAYS Eliquis 5 mg tablet 5 mg PO BID-QOD Patient Comments: TAKE 1 TABLET BY MOUTH TWICE A DAY FOR 90 DAYS furosemide 40 mg tablet 40 mg PO QDAY Patient Comments: TAKE 1 TABLET BY MOUTH EVERY DAY FOR 30 DAYS olmesartan-hydrochlorothiazide 40-25 mg tablet 1 tab PO QDAY Patient Comments: TAKE 1 TABLET BY MOUTH EVERY DAY metoprolol succinate 25 mg tablet extended release 24 hr 25 mg PO QDAY Qty: 30 0RF amlodipine 10 mg tablet 10 mg PO QDAY Qty: 30 0RF Referrals: No Primary/Family,Physician [Primary Care Provider] - In 1 week Problem List Clinical Impression: Fall, Contusion of eyebrow, Skin tear Patient/Caregiver Discharge Instructions Discharge Activity: activity as tolerated Education Materials: Preventing Falls: Staying Active Additional Instructions: Thank you for the opportunity for serving you today. You are stable for discharged . You are advised to: Follow-up with your PCP in 1 to 2 days Return to ED for worsening of symptoms Increase oral fluids Take Tylenol Motrin as needed for pain Do not get your skin tear wet for the next 5 days. Do not remove the sterile strip. You can change the top dressing of your hand only as needed, the sterile strip will fall off on its own. Print Language: Icelandic Stand Alone Forms: Angelia Award Info., Patient Portal Info Letter PA/FRANKLIN Supervising Physician RAAD/FRANKLIN Supervising Physician: MD Remington
[2024-11-16 13:20] LABS: Basophils # (Auto) 0.0 Thou/mm3 (0.0-0.2); Basophils % (Auto) 0 % (0-2.5); Eosinophils # (Auto) 0.1 Thou/mm3 (0.0-0.5); Eosinophils % (Auto) 1 % (0-10); Hematocrit 31.2 % (41.0-53.0); Hemoglobin 10.9 g/dL (13.5-16.0); Immature Granulocytes Auto 0.02 Thou/mm3 (0.00-0.00); Lymphocytes # (Auto) 1.3 Thou/mm3 (1.0-4.8); Lymphocytes % (Auto) 14 % (10-50); Mean Corpuscular HGB Conc 34.9 g/dl (31.0-37.0); Mean Corpuscular Hemoglobin 32.3 pg (25.0-35.0); Mean Corpuscular Volume 93 fL (80-100); Monocytes # (Auto) 0.8 Thou/mm3 (0.0-0.8); Monocytes % (Auto) 8 % (0-12); Neutrophils # (Auto) 7.0 Thou/mm3 (1.8-7.7); Neutrophils % (Auto) 76 % (37-80); Nucleated Red Blood Cell # 0.00 Thou/mm3 (0.00-0.00); Nucleated Red Blood Cell % 0 /100 WBC (0); Platelet Count 226 Thou/mm3 (140-440); RDW Standard Deviation 46.6 fL (35.1-43.9); Red Blood Count 3.37 Miln/mm3 (4.50-5.90); White Blood Count 9.2 Thou/mm3 (3.8-10.6)
[2024-11-16 13:37] LABS: Alanine Aminotransferase 39 U/L (10-49); Albumin, Serum 4.1 gm/dL (3.4-4.8); Albumin/Globulin Ratio 2.1 (1.2-2.2); Alkaline Phosphatase 52 U/L (46-116); Anion Gap 8 (7-16); Aspartate Amino Transferase 37 U/L (0-34); BUN/Creatinine Ratio 13 Ratio (12-20); Bilirubin,Total 1.0 mg/dL (0.3-1.2); Blood Urea Nitrogen 9 mg/dL (9-23); Calcium 9.7 mg/dL (8.3-10.6); Calcium (Corrected) 9.7 mg/dL (8.5-10.1); Carbon Dioxide 25.7 mMol/L (20.0-31.0); Chloride 97 mMol/L (98-107); Creatinine (Component) 0.7 mg/dL (0.6-1.3); Estimated Creatinine Clearance 79.7 mL/min (>60); Globulin 2.0 gm/dL (2.3-3.5); Glucose 99 mg/dL (74-106); Osmolality,Calculated 261 (275-295); Partial Thromboplastin Time 29.0 Seconds (22.0-36.0); Potassium 4.2 mMol/L (3.4-5.1); Sodium 131 mMol/L (136-145); Total Protein 6.1 gm/dL (5.7-8.2); Troponin I < 0.020 ng/mL (0.0-0.045); eGFR > 60 See Note
--- NOTE | 2024-11-16 13:48 | PC.NURSE ---
CALLED CT AT THIS TIME INFORMED THAT IT WAS A FALL WITH HEAD TRAUMA AND PATIENT ON BLOOD THINNERS. CT STATED WILL COME AND GET THEM IN 20 MINUTES
[2024-11-16 15:44] VITALS: BP 182/79; PULSE 66; RESP 20; TEMP 36.6; O2SAT 99
== END 2024-11-16 17:10 | disposition home or self-care (01) ==
PROVIDERS: Nurse Practitioner Family; Emergency Provider Emergency Medicine
DX: S61.412A Laceration without foreign body of left hand, initial encounter (principal); S00.12XA Contusion of left eyelid and periocular area, initial encounter; I49.3 Ventricular premature depolarization; M54.2 Cervicalgia; I48.91 Unspecified atrial fibrillation; W01.10XA Fall on same level from slipping, tripping and stumbling with subsequent striking against unspecified object, initial encounter; Z79.01 Long term (current) use of anticoagulants
CPT/HCPCS: 36415; 70450; 70486; 72125; 80053; 81001; 84484; 85025; 85730; 93005; 99284